=== PATIENT | female | born 1960 | race Caucasian/White ===

== ENCOUNTER 2020-05-30 10:21 | Outpatient (RCR) | payer MEDICAID, SELFPAY ==
[2020-05-30 10:22] VITALS: BP 138/68; PULSE 69
== END 2020-07-03 15:48 | disposition other institution (70) ==
LOC: HO.PT 10:21
PROVIDERS: Visit Provider Otolaryngology
DX: R42 Dizziness and giddiness (principal)
CPT/HCPCS: 97112; 97161

== ENCOUNTER 2020-12-28 15:52 | Emergency (ER) | payer MEDICAID, SELFPAY ==
--- NOTE | ~2020-12-28 | XR_ITS ---
EXAMINATION: XR CHEST CLINICAL INFORMATION: Cough COMPARISON: None TECHNIQUE: 2 views of the chest were obtained. FINDINGS: The heart and pulmonary vessels appear normal. Bibasilar scarring or atelectasis is seen. No infiltrates, effusions or suspicious lung masses are seen. XR/XR chest 2V IMPRESSION: Bibasilar atelectasis.
[2020-12-28 16:59] VITALS: BP 150/68; PULSE 98; RESP 18; TEMP 39.1; O2SAT 94; BMI 24.5
[2020-12-28] MEDS: Acetaminophen 325 MG TABLET 650 MG PO (17:08)
[2020-12-28 17:45] LABS: COVID-19 Test Negative (Negative)
[2020-12-28 19:25] VITALS: BP 117/62; PULSE 82; RESP 18; TEMP 37.4; O2SAT 95
[2020-12-28 19:33] LABS: MANUAL DIFF FLAG NO
[2020-12-28 19:34] LABS: Basophils Percent Auto 0.1 % (0-2); Eosinophils Percent Auto 0.1 % (0-4); Hematocrit 37.4 % (37-47); Hemoglobin 12.2 g/dl (12.0-16.0); Imm Gran Abs Auto 0.04 X10*3/uL (0.00-0.03); Imm Gran Pct Auto 0.4 % (0.0-0.4); Lymphocytes Absolute Auto 0.7 X10*3/uL (1.2-4.9); Lymphocytes Percent Auto 6.3 % (20-40); Mean Corpuscular HGB Conc 32.6 g/dl (31.0-35.0); Mean Corpuscular Hemoglobin 28.4 pg (27.0-33.0); Mean Platelet Volume 8.4 fL (9.4-12.3); Monocytes Absolute Auto 1.1 X10*3/uL (0.1-1.2); Monocytes Percent Auto 10.4 % (2-11); Neutrophils Absolute Auto 9.1 X10*3/uL (2.0-8.3); Neutrophils Percent Auto 82.7 % (45-73); Platelet Count 347 X10*3/uL (160-400)
[2020-12-28 20:11] LABS: Alanine Aminotransferase 21 U/L (0-31); Albumin Level 4.1 g/dL (3.5-5.0); Alkaline Phosphatase 101 U/L (39-117); Anion Gap 13 (12-20); Aspartate Amino Transferase 24 U/L (5-31); Bilirubin Total 0.6 mg/dL (0.0-1.0); Calcium 9.2 mg/dL (8.4-10.2); Carbon Dioxide 28 mmol/L (22-29); Chloride 100 mmol/L (96-108); Creatinine Clr Calc Pharmacy 63.4; Estimated Glomerular Filt Rate > 60; Glucose Random 138 mg/dL (60-115); Potassium 3.6 mmol/L (3.3-5.1); Sodium 137 mmol/L (135-145); Total Protein 6.8 g/dL (6.5-8.0)
[2020-12-28 20:18] LABS: Blood Urea Nitrogen 15 mg/dL (9-16)
--- NOTE | 2020-12-28 23:05 | ED.GENADULT ---
HPI - General Adult General Chief complaint: Fever Stated complaint: Body Pain, Dizziness Time Seen by Provider: 12/28/20 22:55 Source: patient Mode of arrival: ambulatory Limitations: no limitations History of Present Illness HPI narrative: Patient comes emergency room complaining of a red fevers, diffuse body aches, dry cough, not feeling well for 2 weeks Related Data Previous Rx's Medication Instructions Recorded acetaminophen [Tylenol] 650 mg PO Q4H PRN #14 tab 12/28/20 Allergies Allergy/AdvReac Type Severity Reaction Status Date / Time No Known Allergies Allergy Unverified 04/06/20 15:27 Review of Systems Review of Systems: Constitutional : No Weight loss, complaining of fever, chills, fatigue and generalized malaise ENT/Mouth : No Hearing loss, No Ear Pain, No Nasal Congestion, No Sinus Pain, No Hoarseness, No sore throat, No Rhinorrhea, No Swallowing Difficulty Eyes: No Eye Pain, No Swelling, No Redness, No Foreign Body, No Discharge, No Vision Changes Cardiovascular : No Chest Pain, No SOB, No Dyspnea on Exertion, No Orthopnea, No Edema, No Palpitations Respiratory : No Cough, No Sputum, No Wheezing, No Smoke Exposure, No Dyspnea Gastrointestinal : No Nausea, No Vomiting, No Diarrhea, No Constipation, No abdominal Pain, No Hematochezia, No Melena Genitourinary : no irregular bleeding, No Dysuria, No Urinary Frequency, No Hematuria, No Urinary Incontinence, No Urgency, No Flank Pain, No Urinary Flow Changes, No Hesitancy Musculoskeletal : No joint pain, No Myalgias, No Joint Swelling Skin : No Skin Lesions, No rash Neuro : No Weakness, No Numbness, No Paresthesias, No Loss of Consciousness, No Dizziness, No Headache Psych : No Anxiety/Panic, No Depression, No SI/HI/AH/VH, No Social Issues, Heme/Lymph: No Bruising, No Bleeding,No Lymphadenopathy Endocrine : No Polyuria, No Polydipsia, No Temperature Intolerance [facility] Past Medical History Medical History High cholesterol HTN (hypertension) Prediabetes Social History Social History Advance Directives: No Advance Directives Information Provided: No Patient : No Physical Exam Vital Signs: Vital Signs: Last Vital Signs Temp 99.3 F 06/10/21 19:25 Pulse 82 12/28/20 19:25 Resp 18 12/28/20 19:25 BP 117/62 12/28/20 19:25 Pulse Ox 95 12/28/20 19:25 Body Mass Index 24.5 Appearance: Alert. Oriented X3. No acute distress. Eyes: Pupils equal, round and reactive to light. ENT: Pharynx normal. Neck: Normal inspection. Neck supple. No lymph nodes noted. No crepitus CVS: Normal heart rate and rhythm. Pulses normal. Normal S1 and S2 Respiratory: No respiratory distress. Breath sounds normal. No Wheezing. No rales Abdomen: Soft and nontender. No rigidity. No distention. good BS x4 Skin: Skin warm and dry. Normal skin color. Normal skin turgor. Extremities: No lower extremity edema. No lower extremity edema. No Lacerations. No Rash Neuro: Oriented X 3. No motor deficit. No sensory deficit. Moving all extermities. No slurred speech. Course Course Course Narrative: I discussed labs with the patient. At this time, patient will get IV fluids, Toradol. Chest x-ray is within normal limits. Patient likely had having viral syndrome. At this time, patient denies dizziness. Medical Decision Making Lab Data Result diagrams: 12/28/20 19:29 12/28/20 19:29 Labs: Lab Results 12/28/20 12/28/20 12/28/20 Range/Units 17:05 19:29 19:29 WBC 11.0 H (4.8-10.8) X10*3/uL RBC 4.30 (4.20-5.50) X10*6/uL Hgb 12.2 (12.0-16.0) g/dl Hct 37.4 (37-47) % MCV 87.0 (80-98) fL MCH 28.4 (27.0-33.0) pg MCHC 32.6 (31.0-35.0) g/dl RDW 13.0 (11.0-16.0) % Plt Count 347 (160-400) X10*3/uL MPV 8.4 L (9.4-12.3) fL Immature Gran % (Auto) 0.4 (0.0-0.4) % Neut % (Auto) 82.7 H (45-73) % Lymph % (Auto) 6.3 L (20-40) % [place] % (Auto) 10.4 (2-11) % Eos % (Auto) 0.1 (0-4) % Baso % (Auto) 0.1 (0-2) % Lymph # (Auto) 0.7 L (1.2-4.9) X10*3/uL [place] # (Auto) 1.1 (0.1-1.2) X10*3/uL Eos # (Auto) 0.0 (0.0-0.4) X10*3/uL Baso # (Auto) 0.0 (0.0-0.2) X10*3/uL Abs Immat Gran (auto) 0.04 H (0.00-0.03) X10*3/uL Absolute Neuts (auto) 9.1 H (2.0-8.3) X10*3/uL Absolute Nucleated RBC 0.000 (0.0-0.012) X10*3/uL Nucleated RBC % (auto) 0.0 (0.0-0.2) /100WBC Sodium 137 (135-145) mmol/L Potassium 3.6 (3.3-5.1) mmol/L Chloride 100 (96-108) mmol/L Carbon Dioxide 28 (22-29) mmol/L Anion Gap 13 (12-20) BUN 15 (9-16) mg/dL Creatinine 0.83 (0.5-1.4) mg/dL Estim Creat Clear Calc 63.4 Estimated GFR > 60 Random Glucose 138 H (60-115) mg/dL Calcium 9.2 (8.4-10.2) mg/dL Total Bilirubin 0.6 (0.0-1.0) mg/dL AST 24 (5-31) U/L ALT 21 (0-31) U/L Alkaline Phosphatase 101 (39-117) U/L Total Protein 6.8 (6.5-8.0) g/dL Albumin 4.1 (3.5-5.0) g/dL COVID-19 (JOLENE) Negative (Negative) COVID-19 Clin Com See Note Imaging Data Chest x-ray: Radiologist's impression: FINDINGS: The heart and pulmonary vessels appear normal. Bibasilar scarring or atelectasis is seen. No infiltrates, effusions or suspicious lung masses are seen. XR/XR chest 2V IMPRESSION: Bibasilar atelectasis. Discharge Plan Discharge Clinical Impression: Viral infection Patient Disposition: Home, Self-Care Instructions: Viral Syndrome (ED) Additional Instructions: Please follow-up with your primary care physician tomorrow. If you have any worsening or new symptoms, please return to the emergency room or call 911 Prescriptions: New acetaminophen [Tylenol] 325 mg tablet 650 mg PO Q4H PRN (Reason: pain) Qty: 14 RF: 0
[2020-12-28] MEDS: 0.9 % Sodium Chloride 1,000 ML 999 ML IVCONT (23:24)
[2020-12-28] MEDS: Ketorolac Tromethamine 30 MG/ML VIAL IVPUSH (23:24)
[2020-12-28 23:51] VITALS: TEMP 36.6
== END 2020-12-29 00:26 | disposition home or self-care (01) ==
PROVIDERS: Emergency Provider Emergency Medicine; PCP Internal Medicine
DX: B34.9 Viral infection, unspecified (principal); R05 Cough; I10 Essential (primary) hypertension; Z20.822 Contact with and (suspected) exposure to COVID-19
CPT/HCPCS: 36415; 71046; 80053; 85025; 87635; 96361; 96374; 99284; J1885

== ENCOUNTER 2021-01-10 16:08 | Emergency (ER) | payer MEDICAID, SELFPAY ==
--- NOTE | ~2021-01-10 | CT_ITS ---
EXAMINATION: CT HEAD WITHOUT CONTRAST CLINICAL INFORMATION: Headache. Weakness. Amnesia. COMPARISON: None TECHNIQUE: Contiguous axial imaging was performed from the skull base to vertex without intravenous administration of contrast. Coronal and sagittal reformatted images are performed at CT scanner This CT examination was performed using dose optimization techniques as appropriate, variously including the following: *Automated exposure control *Adjustment of mA and/or kV according to patient size (this includes techniques or standardized protocols for targeted exams where dose is matched to indication/reason for exam; i.e. extremities or head) *Use of iterative reconstruction technique DLP: 557 mGy-cm FINDINGS: There is no evidence of acute intracranial hemorrhage or territorial infarction. No abnormal mass effect or midline shift is seen. Bar to white matter differentiation is well preserved. No extra-axial fluid collections are identified. There is generalized global volume loss. There is moderate prominence of the ventricles and the sulci . There are vascular calcifications of the internal carotid arteries bilaterally. The osseous structures and soft tissues are normal. The mastoid air cells and visualized portions of the paranasal sinuses are well aerated. CT/CT head/brain wo con IMPRESSION: No acute intracranial pathology.
[2021-01-10 16:43] VITALS: BP 161/73; PULSE 63; RESP 18; TEMP 36.8; O2SAT 95; BMI 25.0
[2021-01-10 17:23] LABS: Glucose Urine UA NEG (NEG); Leukocyte Esterase Urine TRACE (NEG); Nitrite Urine NEG (NEG); PH 6.5 (5.0-8.0); UACC Culture Trigger YES; Urine Blood TRACE (NEG); Urine Ketones NEG (NEG); Urine Protein NEG (NEG-TRACE)
[2021-01-10 17:25] LABS: Appearance Urine CLEAR; Color Urine YELLOW
[2021-01-10 17:34] LABS: Bacteria Urine 1+ /LPF; RBC Urine 0-2 /HPF (0); Squamous Epithelial Cell Urine TRACE /LPF; WBC Urine 0-2 /HPF (0-4)
[2021-01-10 17:35] LABS: Amorphous Sediment Urine 1+ /LPF
[2021-01-10 17:59] LABS: MANUAL DIFF FLAG NO
[2021-01-10 18:01] LABS: Basophils Percent Auto 0.2 % (0-2); Eosinophils Absolute Auto 0.1 X10*3/uL (0.0-0.4); Eosinophils Percent Auto 1.4 % (0-4); Hematocrit 38.8 % (37-47); Hemoglobin 12.7 g/dl (12.0-16.0); Imm Gran Abs Auto 0.02 X10*3/uL (0.00-0.03); Imm Gran Pct Auto 0.2 % (0.0-0.4); Lymphocytes Absolute Auto 2.2 X10*3/uL (1.2-4.9); Lymphocytes Percent Auto 26.1 % (20-40); Mean Corpuscular HGB Conc 32.7 g/dl (31.0-35.0); Mean Corpuscular Hemoglobin 28.8 pg (27.0-33.0); Mean Platelet Volume 8.4 fL (9.4-12.3); Monocytes Absolute Auto 0.6 X10*3/uL (0.1-1.2); Monocytes Percent Auto 6.8 % (2-11); Neutrophils Absolute Auto 5.5 X10*3/uL (2.0-8.3); Neutrophils Percent Auto 65.3 % (45-73); Platelet Count 489 X10*3/uL (160-400); Red Blood Count 4.41 X10*6/uL (4.20-5.50); Red Cell Distribution Width 13.2 % (11.0-16.0); White Blood Count 8.5 X10*3/uL (4.8-10.8)
[2021-01-10 18:25] LABS: Anion Gap 12 (12-20); Blood Urea Nitrogen 21 mg/dL (9-16); Calcium 9.4 mg/dL (8.4-10.2); Carbon Dioxide 27 mmol/L (22-29); Chloride 106 mmol/L (96-108); Creatinine Clr Calc Pharmacy 67.2; Estimated Glomerular Filt Rate > 60; Glucose Random 102 mg/dL (60-115); Potassium 4.1 mmol/L (3.3-5.1); Sodium 141 mmol/L (135-145)
[2021-01-10 20:24] VITALS: BP 132/56; PULSE 58; RESP 20; TEMP 36.7; O2SAT 95
--- NOTE | 2021-01-10 20:36 | PC.NURSE ---
PT PRESENTS TO ED FOR DAUGHTERS REPORT OF ACUTE CONFUSION. DAUGHTER REPORTS PT DID NOT REMEMBER IF SHE WORKED TODAY, WAS FOUND IN BED IN [facility]. 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 DAUGHTER REPORTS PT WITH A FALL APPROX 4 MONTHS AGO, POSITIVE HEAD STRIKE BUT NO IMAGING DONE OF HEAD. A&Ox3 AT THIS TIME, NEUROS INTACT. AMB WITH STEADY GAIT TO BATHROOM TO CHANGE. AWAITING PRIMARY MD ANTHONY.
--- NOTE | 2021-01-10 21:52 | ED.GENADULT ---
HPI - General Adult General Chief complaint: General Medical Stated complaint: confusion Time Seen by Provider: 01/10/21 20:30 Source: patient and family (Daughter) Mode of arrival: ambulatory Limitations: no limitations History of Present Illness HPI narrative: 60-year-old female who was brought to the emergency department by her daughter for evaluation of headache and amnesia. According to the daughter, the patient did not remember that she went to work today. The daughter saw her around 2:00 p.m. in the patient could not tell the daughter she went to work. The daughter states that she fed her mother some food and the patient's memory of the day seem to come back. The patient has been having episodes of forgetfulness over the past month which is gotten worse over the past 2 weeks. She is also having headache which she describes as a ?heaviness and air in her head ?sensation. She states that she gets these headaches in the morning and will last 4-5 hours. There located in her left side of her head and left neck. She states that the headaches can vary in intensity and can be 10/10. She states that she feels like her brain shots off during the day and she forgets things. The patient states she has taken some Tylenol with some relief of her headaches. The headaches are associated with nausea and dizziness. The patient was seen in the emergency department on 12/28/2020 for possible viral illness. Related Data Previous Rx's Medication Instructions Recorded acetaminophen [Tylenol] 650 mg PO Q4H PRN #14 tab 12/28/20 Allergies Allergy/AdvReac Type Severity Reaction Status Date / Time No Known Allergies Allergy Verified 01/10/21 16:42 Review of Systems Review of Systems: Yes all other systems are reviewed and are negative [facility] Past Medical History [facility] Narrative: Past medical history: Prediabetes, hypertension, hyperlipidemia. Past surgical history: 1 ovary was removed secondary to assist. Social history: The patient denies tobacco, alcohol and drug use. According to the patient's daughter, the patient's other daughter approximately 1 year prior at age 38, this is a sudden . Apparently the patient has been depressed secondary to this . Medical History High cholesterol HTN (hypertension) Prediabetes Social History Social History Alcohol intake: never Patient Tobacco Use Status: Never used Tobacco Use of substances other than those prescribed or required for medical reasons: No Advance Directives: No Advance Directives Information Provided: No Patient : No Physical Exam Vital Signs: Vital Signs: Last Vital Signs Temp 97.8 F 01/10/21 21:55 Pulse 74 01/10/21 21:55 Resp 16 01/10/21 21:55 BP 113/74 01/10/21 21:55 Pulse Ox 99 01/10/21 21:55 Body Mass Index 25.0 Const: General: cooperative and healthy appearing Orientation/consciousness: oriented to person and oriented to place Limitations: no limitations HENMT: Head: Yes normal to inspection, Yes normocephalic and Yes atraumatic Ears: external ears normal General nose exam: Normal external nose present Face and sinus: Yes normal facial exam Mouth: Normal oral and palatal mucosa present Throat: Yes posterior oropharynx normal Eyes: Periorbital: periorbital findings normal Eyelids: Yes eyelids normal Conjunctivae: conjunctivae normal Sclerae: sclerae normal Corneas: corneas normal Pupils: Equal, round and reactive pupils present Direct Ophthalmoscopy: normal light reflex Neck: Neck: Yes full ROM, Yes no lymphadenopathy, Yes no meningeal signs, Yes trachea midline and Yes supple Chest: Chest palpation & inspection: normal inspection of the chest and normal palpation of entire chest wall Resp: Effort & Inspection: normal respiratory effort and able to speak in complete sentences Auscultation: clear to auscultation bilaterally Cardio: Rate: regular rate Rhythm: regular rhythm Heart sounds: S1 normal heart sound present, S2 normal heart sound present and no murmurs GI: Inspection: Yes normal to inspection Palpation (GI): Soft to palpation, nontender, no guarding, not rigid and No hepatosplenomegaly present : General: Yes no CVA tenderness Back/Spine/Pelvis: Back: no CVA tenderness Cervical Spine: normal cervical lordosis Thoracic/Lumbar Spine: thoracic and lumbar spine normal to inspection Skin: Lesions: no lesions Rashes: no rashes Wounds: no wounds Neuro: General: oriented to person, oriented to place and no meningeal signs Cranial nerves: Yes CN's II-XII intact bilaterally and Yes Equal, round and reactive pupils present Cognition (Neuro): normal cognition Motor exam (neuro): 5/5 motor strength present throughout Coordination: [id number] test normal, [id number] test normal and tandem gait normal Extrem: General: Yes normal to inspection and Yes full ROM Psych: Appearance: well kempt Mental Status: mental status grossly normal Speech and movement: Normal speech and movement present Affect: normal affect Attitude: cooperative Thought process: Normal thought process present Thought content: Normal thought content present Course Course Course Narrative: 60-year-old female who presents emergency department for evaluation of headaches times 2 weeks, amnesia with for got fullness x1 month. The patient's physical examination was unremarkable with a normal neurologic exam. Laboratory evaluation was ordered. CT scan of the brain was also ordered. 2317: Patient's laboratory evaluation was unremarkable. CT scan of the brain did not reveal any clear etiology for the patient's headache or amnesia symptoms. The patient will need to be referred to a neurologist for evaluation of possible seizure is the cause of her symptoms. She was advised to take Tylenol ibuprofen for pain. The patient was given verbal and printed instructions prior to discharge. The patient was advised to follow-up with their PCP in 2 days and to return to the emergency department if their symptoms get worse or if they develop any new symptoms that are concerning to them Medical Decision Making Lab Data Result diagrams: 01/10/21 17:55 01/10/21 17:55 Labs: Lab Results 01/10/21 01/10/21 01/10/21 Range/Units 17:04 17:55 17:55 WBC 8.5 (4.8-10.8) X10*3/uL RBC 4.41 (4.20-5.50) X10*6/uL Hgb 12.7 (12.0-16.0) g/dl Hct 38.8 (37-47) % MCV 88.0 (80-98) fL MCH 28.8 (27.0-33.0) pg MCHC 32.7 (31.0-35.0) g/dl RDW 13.2 (11.0-16.0) % Plt Count 489 H D (160-400) X10*3/uL MPV 8.4 L (9.4-12.3) fL Immature Gran % (Auto) 0.2 (0.0-0.4) % Neut % (Auto) 65.3 (45-73) % Lymph % (Auto) 26.1 (20-40) % [place] % (Auto) 6.8 (2-11) % Eos % (Auto) 1.4 (0-4) % Baso % (Auto) 0.2 (0-2) % Lymph # (Auto) 2.2 (1.2-4.9) X10*3/uL [place] # (Auto) 0.6 (0.1-1.2) X10*3/uL Eos # (Auto) 0.1 (0.0-0.4) X10*3/uL Baso # (Auto) 0.0 (0.0-0.2) X10*3/uL Abs Immat Gran (auto) 0.02 (0.00-0.03) X10*3/uL Absolute Neuts (auto) 5.5 (2.0-8.3) X10*3/uL Absolute Nucleated RBC 0.000 (0.0-0.012) X10*3/uL Nucleated RBC % (auto) 0.0 (0.0-0.2) /100WBC Sodium 141 (135-145) mmol/L Potassium 4.1 (3.3-5.1) mmol/L Chloride 106 (96-108) mmol/L Carbon Dioxide 27 (22-29) mmol/L Anion Gap 12 (12-20) BUN 21 H (9-16) mg/dL Creatinine 0.79 (0.5-1.4) mg/dL Estim Creat Clear Calc 67.2 Estimated GFR > 60 Random Glucose 102 (60-115) mg/dL Calcium 9.4 (8.4-10.2) mg/dL Urine Color YELLOW Urine Appearance CLEAR Urine pH 6.5 (5.0-8.0) Ur Specific [place] 1.010 (1.005-1.025) Urine Protein NEG (NEG-TRACE) MG/DL Urine Glucose (UA) NEG (NEG) MG/DL Urine Ketones NEG (NEG) MG/DL Urine Blood TRACE (NEG) Urine Nitrite NEG (NEG) Ur Leukocyte Esterase TRACE H (NEG) Urine RBC 0-2 (0) /HPF Urine WBC 0-2 (0-4) /HPF Ur Squamous Epith Cells TRACE /LPF Amorphous Sediment 1+ /LPF Urine Bacteria 1+ /LPF Discharge Plan Discharge Clinical Impression: Amnesia Headache Qualifiers: Headache type: unspecified Headache chronicity pattern: acute headache Intractability: not intractable Qualified Code(s): R51.9 - Headache, unspecified Patient Disposition: Home, Self-Care Additional Instructions: Your laboratory evaluation was unremarkable. The CT scan of your brain was normal which is reassuring. At this time, I do not have a clear cause for your forgetfulness and amnesia. It is possible that he may be having seizures. You will need to follow-up with a neurologist to further evaluate your symptoms. It is also possible your symptoms may be caused by stress and anxiety and you should discuss this with your doctors. Take ibuprofen 200 mg pills, 3 pills every 6 hours as needed for pain. Take Tylenol (acetaminophen) 500 mg pills, 2 pills every 4 to 6 hours as needed for pain. Follow-up with your doctor in 2 days. Also call our neurologist to see if you can schedule appointment to be evaluated for causes of your amnesia and forgetfulness such as seizures. Please return to the emergency department if your symptoms get worse or if you develop any symptoms that are concerning to you. Prescriptions: No Action acetaminophen [Tylenol] 325 mg tablet 650 mg PO Q4H PRN (Reason: pain) Qty: 14 RF: 0 Referrals: Martell Jaime MD [Physician] - 1 week (Amnesia, forgetfulness, headaches, needs evaluation for possible partial seizures) Stand Alone Forms: Work/School Release
[2021-01-10 21:55] VITALS: BP 113/74; PULSE 74; RESP 16; TEMP 36.6; O2SAT 99
--- NOTE | 2021-01-10 22:38 | PC.NURSE ---
PT AWAITING CT SCAN, AWARE OF PLAN OF CARE. NO COMPLAINTS AT THIS TIME.
== END 2021-01-10 23:58 | disposition home or self-care (01) ==
PROVIDERS: Emergency Provider Emergency Medicine Emergency Medical Services; PCP Internal Medicine
DX: R41.3 Other amnesia (principal); R51.9 Headache, unspecified; I10 Essential (primary) hypertension
CPT/HCPCS: 36415; 70450; 80048; 81001; 81003; 85025; 87086; 87088; 87147; 87186; 99284

== ENCOUNTER 2021-01-19 14:22 | Outpatient (REF) | payer MEDICAID, SELFPAY ==
--- NOTE | ~2021-01-19 | MR_ITS ---
EXAMINATION: MR BRAIN WITHOUT CONTRAST CLINICAL INFORMATION: Dizziness, giddiness, headache, fatigue. Abnormal weight loss. COMPARISON: CT head 01/10/2021 TECHNIQUE: Routine unenhanced MRI of the brain. FINDINGS: No intracranial hemorrhage, tumors or acute infarcts are noted. A small number of scattered supratentorial periventricular and subcortical white matter punctate T2 hyperintensities are identified. Mild diffuse commensurate prominence of the ventricles and sulci is noted. Susceptibility-weighted images reveal no evidence of acute or chronic hemorrhage within the brain parenchyma. The craniocervical junction and cerebellar tonsils are normal in appearance. No suspicious marrow abnormalities are visualized. The orbits and globes are normal in appearance. No significant mucosal thickening or retained secretions are noted within the paranasal sinuses, mastoid air cells and middle ear cavities. Normal flow-related signal intensity is identified in the major intracranial vessels and dural sinuses. MR/MR head/brain wo con IMPRESSION: Small number of scattered punctate (less than 3 mm) white matter foci of altered signal intensity (supratentorial subcortical and periventricular white matter punctate T2 hyperintensities). These findings are of uncertain clinical significance, and similar findings are a frequently encountered asymptomatic finding. These findings could also represent mild white matter chronic small vessel ischemic changes.
== END 2021-01-19 14:23 | disposition home or self-care (01) ==
LOC: HO.MRI 14:22
PROVIDERS: PCP Internal Medicine; Visit Provider Internal Medicine Geriatric Medicine
DX: R42 Dizziness and giddiness (principal); R51.9 Headache, unspecified; R53.83 Other fatigue; R63.4 Abnormal weight loss
CPT/HCPCS: 70551

== ENCOUNTER 2022-01-02 11:36 | Emergency (ER) | payer MEDICAID, SELFPAY ==
--- NOTE | ~2022-01-02 | XR_ITS ---
EXAMINATION: XR CHEST CLINICAL INFORMATION: Chest pain COMPARISON: Previous chest x-ray December 2020 TECHNIQUE: 2 views of the chest were obtained. FINDINGS: The cardiac and mediastinal contours are normal. The lungs are clear. There is no pleural effusion or pneumothorax. There are degenerative changes of the spine. XR/XR chest 2V IMPRESSION: No evidence for acute disease in the chest.
[2022-01-02 11:43] VITALS: BP 164/80; PULSE 80; O2SAT 96
[2022-01-02 12:08] VITALS: BP 155/66; PULSE 73; RESP 18; TEMP 36.6; O2SAT 98; BMI 27.4
--- NOTE | 2022-01-02 12:13 | ECG_ITS ---
Test Reason : chest pain right side Blood Pressure : / mmHG Vent. Rate : 062 BPM Atrial Rate : 062 BPM P-R Int : 176 ms QRS Dur : 116 ms QT Int : 440 ms P-R-T Axes : 047 -18 047 degrees QTc Int : 446 ms Normal sinus rhythm Possible Left atrial enlargement Left ventricular hypertrophy with QRS widening ( Anshu product ) Abnormal ECG When compared to the previous EKG of No significant changes seen Referred By: Generic ED Physician Electronically Signed By:Jose Juan Almanzar
[2022-01-02 12:30] LABS: MANUAL DIFF FLAG NO
[2022-01-02 12:37] LABS: Basophils Percent Auto 0.3 % (0-2); Eosinophils Absolute Auto 0.1 X10*3/uL (0.0-0.4); Eosinophils Percent Auto 1.5 % (0-4); Hematocrit 41.5 % (37.0-47.0); Hemoglobin 13.8 g/dl (12.0-16.0); Imm Gran Abs Auto 0.01 X10*3/uL (0.00-0.03); Imm Gran Pct Auto 0.1 % (0.0-0.4); Lymphocytes Absolute Auto 2.1 X10*3/uL (1.2-4.9); Lymphocytes Percent Auto 28.8 % (20-40); Mean Corpuscular HGB Conc 33.3 g/dl (31.0-35.0); Mean Corpuscular Hemoglobin 29.4 pg (27.0-33.0); Mean Corpuscular Volume 88.3 fL (80.0-98.0); Monocytes Absolute Auto 0.6 X10*3/uL (0.1-1.2); Monocytes Percent Auto 8.7 % (2-11); Neutrophils Absolute Auto 4.3 x10*3/uL (2.0-8.3); Neutrophils Percent Auto 60.6 % (45-73); Platelet Count 343 X10*3/uL (160-400); White Blood Count 7.1 X10*3/uL (4.8-10.8)
[2022-01-02 12:54] LABS: Anion Gap 13 (12-20); Blood Urea Nitrogen 15 mg/dL (9-16); Carbon Dioxide 27 mmol/L (22-29); Chloride 103 mmol/L (96-108); Creatinine Clr Calc Pharmacy 69.3; Estimated Glomerular Filt Rate > 60; Glucose Random 107 mg/dL (60-115); Sodium 139 mmol/L (135-145)
[2022-01-02 12:56] LABS: COVID-19 Test Negative (Negative); IDNOW Serial# 9DB6401D; Influenza A Negative (Negative); Influenza B2 Negative (Negative)
[2022-01-02 13:00] LABS: B Type Natriuretic Peptide 23 pg/mL (<100); Troponin-I High Sensitivity < 3.5 ng/L (<3.5-17.0)
[2022-01-02 13:06] VITALS: BP 159/73; PULSE 65; RESP 16; TEMP 37.1; O2SAT 94; O2SAT 95
--- NOTE | 2022-01-02 13:22 | ED_ITS ---
HPI - Chest Pain General Chief Complaint: Upper Respiratory Symptoms Stated Complaint: R SIDED CP SINCE SHE WOKE UP Time Seen by Provider: 01/02/22 12:38 Source: patient Mode of arrival: ambulatory Limitations: language barrier ([place] speaking only, student success counselor used) History of Present Illness HPI narrative: 61-year-old female who presents emergency department for evaluation of right- sided chest pain. She states that she woke up this morning and had pain in the right side of her chest. She states the pain radiated to her right shoulder and down her right arm. She states the pain was very mild 2/10. She states the pain was a burning like sensation and was intermittent with last minutes. 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 She states the pain was 2/10. She denied lightheadedness, dizziness, neck or jaw pain. The pain did not radiate to her back. Patient states this morning her blood pressure was elevated she did take her hydrochlorothiazide. She states that she felt like her blood pressure was high at the school and she took another hydrochlorothiazide. She was then transported to the hospital by ambulance. At the time my evaluation, she stated that her chest pain was completely resolved. She does exercise and lift weights without any difficulty. She this she has done this over the last several days. She does not recall any injury to her chest pain She denied fever, chills, rhinorrhea, sore throat, shortness of breath, dyspnea on exertion, nausea, vomiting, diarrhea, pain or swelling in her legs. She has not had any recent surgeries and is not gone on any long trips. MD complaint: chest pain Onset (ago): hour(s) (4) Timing of current episode: episodic Prior episodes: No Onset: during exertion (While serving lunch is at the school cafeteria) Pain location: right chest Pain radiation: right arm Severity: mild Pain scale (0-10): 2 Quality: burning Relieving factors: nothing Exacerbating factors: nothing Treatment prior to arrival: other (Patient took her antihypertensive medication, hydrochlorothiazide.) Risk Factors Coronary artery disease risk factors: hyperlipidemia and hypertension Thoracic aortic dissection risk factors: none Related Data Previous Rx's Medication Instructions Recorded acetaminophen 325 mg tablet 650 mg PO Q4H PRN pain #14 tabs 12/28/20 (Tylenol) Allergies Allergy/AdvReac Type Severity Reaction Status Date / Time No Known Allergies Allergy Verified 01/10/21 16:42 Review of Systems Review of Systems: Yes all other systems are reviewed and are negative COUNTS INCLUDE 234 BEDS AT THE [facility] Past Medical History COUNTS INCLUDE 234 BEDS AT THE [facility] Narrative: Social history: She denies tobacco use. She occasionally drinks alcohol. She denies drug use. Medical History High cholesterol HTN (hypertension) Prediabetes Social History Social History Alcohol intake: never Patient Tobacco Use Status: Never used Tobacco Use of substances other than those prescribed or required for medical reasons: No Advance Directives: No Advance Directives Information Provided: No Physical Exam Vital Signs: Vital Signs: Last Vital Signs Temp 98.7 F 01/02/22 13:06 Pulse 65 01/02/22 13:06 Resp 16 01/02/22 13:06 BP 159/73 H 01/02/22 13:06 Pulse Ox 94 01/02/22 13:06 O2 Del Method 01/02/22 13:06 BMI result Body Mass Index 27.4 Const: General: cooperative and no acute distress Orientation/consciousness : oriented to person and oriented to place Limitations: no limitations HEENT: Head: Yes normal to inspection, Yes normocephalic and Yes atraumatic Ears: external ears normal General nose exam: Normal external nose present Face and sinus: Yes normal facial exam Mouth: Normal oral and palatal mucosa present Throat: Yes posterior oropharynx normal Eyes: General: appearance normal, both eyes and all related structures Pupils: Equal, round and reactive pupils present Neck: Neck: Yes normal visual inspection, Yes no lymphadenopathy, Yes trachea midline and Yes supple Chest: Chest palpation & inspection: normal inspection of the chest and tenderness costochondral junction (Right-sided) Resp: Effort & Inspection: normal respiratory effort and able to speak in complete sentences Auscultation: clear to auscultation bilaterally Cardio: Rate: regular rate Rhythm: regular rhythm Heart sounds: S1 normal heart sound present, S2 normal heart sound present and no murmurs GI: Inspection: Yes normal to inspection Palpation (GI): Soft to palpation, nontender and no guarding Auscultation: normal bowel sounds : General: Yes no CVA tenderness Back/Spine/Pelvis: Back: no CVA tenderness Skin: General skin exam: no rashes or lesions noted Neuro: General: oriented to person and oriented to place Cranial nerves: Yes CN's II-XII intact bilaterally and Yes Equal, round and reactive pupils present Cognition (Neuro): normal cognition Motor exam (neuro): 5/5 motor strength present throughout Extrem: General: Yes normal to inspection Psych: Appearance: grossly normal Speech and movement: Normal speech and movement present Affect: normal affect Attitude: cooperative Thought process: Normal thought process present Thought content: Normal thought cont ent present Course Course Course Narrative: 61-year-old female who presents emergency department for evaluation of right- sided chest pain which radiated to her right arm, she states that the pain started this morning when she woke up. This was at least 4 hours prior to evaluation. The pain was an intermittent burning sensation which was 2/10 at its worst. The pain got worse while she was serving food at the school cafeteria. She does have a history of hypertension and was noted to have an elevated blood pressure by the school nurse and the patient did take a 2nd dose of her hydrochlorothiazide. At the time my evaluation she was pain-free. Patient's vital signs were normal. Physical examination did reveal right-sided anterior chest wall tenderness over the costochondral joints. Exam was othe rwise unremarkable. Laboratory evaluation included a CBC, CMP, BNP and these tests were unremarkable. The patient's high sensitivity troponin I was below detectable limits which was reassuring. Twelve EKG did reveal inverted T-wave in V1 with ST segment elevation and ST segment depression V5 and V6 but I think that this is secondary to LVH and not an acute RI. chest x-ray, COVID-19 and influenza tests were negative. The patient's presentation is most consistent with costochondritis I did discuss this with her. Patient was given printed and verbal instructions and discharged home. MDM - Chest Pain Lab Data Result diagrams: 01/02/22 12:22 01/02/22 12:22 Labs: Lab Results 01/02/22 01/02/22 01/02/22 Range/Units 12:19 12:19 12:22 WBC 7.1 (4.8-10.8) X10*3/uL RBC 4.70 (4.20-5.50) X10*6/uL Hgb 13.8 (12.0-16.0) g/dl Hct 41.5 (37.0-47.0) % MCV 88.3 (80.0-98.0) fL MCH 29.4 (27.0-33.0) pg MCHC 33.3 (31.0-35.0) g/dl RDW 13.0 (11.0-16.0) % Plt Count 343 (160-400) X10*3/uL MPV 9.0 L (9.4-12.3) fL Immature Gran % (Auto) 0.1 (0.0-0.4) % Neut % (Auto) 60.6 (45-73) % Lymph % (Auto) 28.8 (20-40) % [place] % (Auto) 8.7 (2-11) % Eos % (Auto) 1.5 (0-4) % Baso % (Auto) 0.3 (0-2) % Lymph # (Auto) 2.1 (1.2-4.9) X10*3/uL [place] # (Auto) 0.6 (0.1-1.2) X10*3/uL Eos # (Auto) 0.1 (0.0-0.4) X10*3/uL Baso # (Auto) 0.0 (0.0-0.2) X10*3/uL Abs Immat Gran (auto) 0.01 (0.00-0.03) X10*3/uL Absolute Neuts (auto) 4.3 (2.0-8.3) x10*3/uL Absolute Nucleated RBC 0.000 (0.0-0.012) X10*3/uL Nucleated RBC % (auto) 0.0 (0.0-0.2) /100WBC Sodium (135-145) mmol/L Potassium (3.3-5.1) mmol/L Chloride (96-108) mmol/L Carbon Dioxide (22-29) mmol/L Anion Gap (12-20) BUN (9-16) mg/dL Creatinine (0.5-1.4) mg/dL Estim Creat Clear Calc Estimated GFR Random Glucose (60-115) mg/dL Calcium (8.4-10.2) mg/dL Troponin I High Sens (<3.5-17.0) ng/L B-Natriuretic Peptide (<100) pg/mL COVID-19 (JOLENE) Negative (Negative) COVID-19 Clin Com See Note Influenza Type A (YESSY) Negative (Negative) Influenza Type B (YESSY) Negative (Negative) Influenza A & B Note See Note 01/02/22 01/02/22 Range/Units 12:22 12:22 WBC (4.8-10.8) X10*3/uL RBC (4.20-5.50) X10*6/uL Hgb (12.0-16.0) g/dl Hct (37.0-47.0) % MCV (80.0-98.0) fL MCH (27.0-33.0) pg MCHC (31.0-35.0) g/dl RDW (11.0-16.0) % Plt Count (160-400) X10*3/uL MPV (9.4-12.3) fL Immature Gran % (Auto) (0.0-0.4) % Neut % (Auto) (45-73) % Lymph % (Auto) (20-40) % [place] % (Auto) (2-11) % Eos % (Auto) (0-4) % Baso % (Auto) (0-2) % Lymph # (Auto) (1.2-4.9) X10*3/uL [place] # (Auto) (0.1-1.2) X10*3/uL Eos # (Auto) (0.0-0.4) X10*3/uL Baso # (Auto) (0.0-0.2) X10*3/uL Abs Immat Gran (auto) (0.00-0.03) X10*3/uL Absolute Neuts (auto) (2.0-8.3) x10*3/uL Absolute Nucleated RBC (0.0-0.012) X10*3/uL Nucleated RBC % (auto) (0.0-0.2) /100WBC Sodium 139 (135-145) mmol/L Potassium 4.0 (3.3-5.1) mmol/L Chloride 103 (96-108) mmol/L Carbon Dioxide 27 (22-29) mmol/L Anion Gap 13 (12-20) BUN 15 (9-16) mg/dL Creatinine 0.79 (0.5-1.4) mg/dL Estim Creat Clear Calc 69.3 Estimated GFR > 60 Random Glucose 107 (60-115) mg/dL Calcium 10.0 D (8.4-10.2) mg/dL Troponin I High Sens < 3.5 (<3.5-17.0) ng/L B-Natriuretic Peptide 23 (<100) pg/mL COVID-19 (JOLENE) (Negative) COVID-19 Clin Com Influenza Type A (YESSY) (Negative) Influenza Type B (YESSY) (Negative) Influenza A & B Note ECG Data ECG #1: Attestation: I personally reviewed and interpreted this ECG as follows: Interpretation: 1219: Normal sinus rhythm with a rate of 62, normal [place] interval, prolonged QRS of 116 milliseconds, inverted T-wave in V1, ST segment elevation in V2 with ST segment depression V5 and V6 consistent with left ventricular hypertrophy with QRS widening, no old EKG for comparison. Discharge Plan Discharge Clinical Impression: Costochondral chest pain Patient Disposition: Home, Self-Care Instructions: Costochondritis (ED) Additional Instructions: Your blood work was normal. Your chest x-ray was normal. Your COVID-19 and influenza tests were negative. Your symptoms are consistent with inflammation of the joints and muscles of your chest (costochondritis). Take ibuprofen 200 mg pills, 3 pills every 6 hours as needed for pain. Take Tylenol (acetaminophen) 500 mg pills, 2 pills every 4 to 6 hours as needed for pain. Continue taking your medications including your hydrochlorothiazide as prescribed by your provider. Follow-up with your doctor in 2 days. Please return to the emergency department if your symptoms get worse or if you develop any symptoms that are concerning to you. Please see the work note. Prescriptions: No Action acetaminophen [Tylenol] 325 mg tablet 650 mg PO Q4H PRN (Reason: pain) Qty: 14 0RF Stand Alone Forms: Work/School Release
== END 2022-01-02 13:59 | disposition home or self-care (01) ==
PROVIDERS: Emergency Provider Emergency Medicine Emergency Medical Services; PCP Internal Medicine
DX: M94.0 Chondrocostal junction syndrome [Tietze] (principal); I10 Essential (primary) hypertension; Z79.899 Other long term (current) drug therapy; Z20.822 Contact with and (suspected) exposure to COVID-19
CPT/HCPCS: 71046; 80048; 83880; 84484; 85025; 87502; 87635; 93005; 99283; 99284

== ENCOUNTER 2022-07-24 15:46 | Emergency (ER) | payer MEDICAID, SELFPAY ==
--- NOTE | ~2022-07-24 | XR_ITS ---
EXAMINATION: XR CHEST CLINICAL INFORMATION: Chest wall pain. COMPARISON: Chest radiograph 01/02/2022. TECHNIQUE: Frontal view of the chest was obtained. FINDINGS: Normal appearance of the cardiomediastinal silhouette. Mild interstitial prominence, subjectively increased compared to December 2021. No focal airspace opacities. No pleural effusion or pneumothorax. No evidence of displaced rib fractures. XR/XR chest 1V IMPRESSION: 1. Mild interstitial prominence is nonspecific and could be associated with asthma, bronchitis, reactive airways disease or atypical infections. 2. No focal airspace opacities. 3. No pleural effusion or pneumothorax. 4. No evidence of displaced rib fractures. However, if a rib fracture is highly clinically suspected, recommend correlation with dedicated radiographic images of the rib cage which include oblique views.
--- NOTE | 2022-07-24 16:34 | ECG_ITS ---
Test Reason : LEFT SIDE PAIN Blood Pressure : / mmHG Vent. Rate : 066 BPM Atrial Rate : 066 BPM P-R Int : 194 ms QRS Dur : 116 ms QT Int : 420 ms P-R-T Axes : 068 -12 057 degrees QTc Int : 440 ms Normal sinus rhythm Incomplete right bundle branch block Minimal voltage criteria for LVH, may be normal variant ( Anshu product ) Borderline ECG When compared with ECG of 02-JAN-2022 12:19, No significant change was found Referred By: Sharri Rodríguez Electronically Signed By:PAULA NESS
--- NOTE | 2022-07-24 16:34 | ED.CHESTPAIN ---
HPI - Chest Pain General Chief Complaint: General Medical <RONY Pretty - Last Filed: 07/24/22 16:38> Stated Complaint: Chest Pain, L sided body aches <RONY Pretty - Last Filed: 07/24/22 16:38> Time Seen by Provider: 07/24/22 17:31 <RONY Pretty - Last Filed: 07/24/22 16:38> Source: patient <Dhruv Douglas MD - Last Filed: 07/25/22 11:04> Mode of arrival: ambulatory <Dhruv Douglas MD - Last Filed: 07/25/22 11:04> Limitations: language barrier (Barbadian speaking only, zipper repairer used) <Dhruv Douglas MD - Last Filed: 07/25/22 11:04> History of Present Illness HPI narrative: This patient has been in the emergency department for approximately 18 hours. The patient was listed as being seen by provider however the patient never actually saw provider until I was made aware the patient has been in the emergency department for 18 hours and was requesting 2 leave. 62-year-old female who presents emergency department for evaluation of right arm pain times 2 months. The patient told me that her right arm feels heavy and she has difficulty lifting it above her shoulder. She states that she has to use her right arm in order to lift her left arm up above her head in order to fix her hair. She states she gets occasional numbness in the left arm. She states that she has pain in the left neck as well. She denies any injury. She states she occasionally gets some left-sided chest pain. She has been taking ibuprofen and Tylenol with no relief of her pain. She denied fever, chills, rhinorrhea, sore throat, cough, chest pain, shortness of breath, dyspnea on exertion. <Dhruv Douglas MD - Last Filed: 07/25/22 11:04> Related Data Home Medications: Previous Rx's Medication Instructions Recorded acetaminophen 325 mg tablet 650 mg PO Q4H PRN pain #14 tabs 12/28/20 (Tylenol) prednisone 20 mg tablet 20 mg PO DAILY 7 days #7 tabs 07/25/22 <RONY Pretty - Last Filed: 07/24/22 16:38> Allergies/Adverse Reactions: Allergies Allergy/AdvReac Type Severity Reaction Status Date / Time No Known Allergies Allergy Verified 01/10/21 16:42 <RONY Pretty - Last Filed: 07/24/22 16:38> Review of Systems Review of Systems: Yes all other systems are reviewed and are negative <Dhruv Douglas MD - Last Filed: 07/25/22 11:04> [facility] Past Medical History [facility] Narrative: Social history: She denies tobacco, and drug use. She states she occasionally drinks alcohol. <Dhruv Douglas MD - Last Filed: 07/25/22 11:04> Medical History: Medical History High cholesterol HTN (hypertension) Prediabetes <RONY Pretty - Last Filed: 07/24/22 16:38> Social History Social History: Social History Alcohol intake: never Patient Tobacco Use Status: Never used Tobacco Smoked in Last 30 Days: No Use of substances other than those prescribed or required for medical reasons: No Advance Directives: No Advance Directives Information Provided: Yes <RONY Pretty - Last Filed: 07/24/22 16:38> Physical Exam Vital Signs: Vital Signs: Last Vital Signs Temp 97.8 F 07/25/22 10:23 Pulse 67 07/25/22 10:23 Resp 11 L 07/25/22 10:23 BP 123/61 07/25/22 10:23 Pulse Ox 95 07/25/22 10:23 O2 Del Method 07/25/22 10:23 O2 Flow Rate 94 07/25/22 03:22 BMI result Body Mass Index 25.0 <RONY Pretty - Last Filed: 07/24/22 16:38> Vital Signs: Last Vital Signs Temp 97.8 F 07/25/22 10:23 Pulse 67 07/25/22 10:23 Resp 11 L 07/25/22 10:23 BP 123/61 07/25/22 10:23 Pulse Ox 95 07/25/22 10:23 O2 Del Method 07/25/22 10:23 O2 Flow Rate 94 07/25/22 03:22 BMI result Body Mass Index 25.0 <Nafisa Candelaria MD - Last Filed: 07/24/22 18:48> Vital Signs: Last Vital Signs Temp 97.8 F 07/25/22 10:23 Pulse 67 07/25/22 10:23 Resp 11 L 07/25/22 10:23 BP 123/61 07/25/22 10:23 Pulse Ox 95 07/25/22 10:23 O2 Del Method 07/25/22 10:23 O2 Flow Rate 94 07/25/22 03:22 BMI result Body Mass Index 25.0 Vital signs were normal. <Dhruv Douglas MD - Last Filed: 07/25/22 11:04> General: Awake, alert, patient, very pleasant cooperative, no distress. HEENT exam: Head is normal cephalic atraumatic, pupils were equal round reactive light, sclera contact however normal Neck: Supple, no cervical spine tenderness, no tenderness palpation of the trapezius muscles or sternocleidomastoid muscles. Extremities: The patient does have tenderness palpation over her proximal shoulder muscles, she has full range of motion passively of her shoulder with some pain we internal rotation. The patient has significant pain with active rotation against resistance with internal and external rotation of her left shoulder. Her left shoulder is neurovascularly intact. Lungs: Clear to auscultation Heart: Regular rate rhythm Abdomen: Soft nontender normoactive bowel sounds Neurologic exam: nonfocal except for limited range motion of the left shoulder secondary to pain <Dhruv Douglas MD - Last Filed: 07/25/22 11:04> Course Course Course Narrative: RME--62-year-old female with a past medical history of HLD, HTN, prediabetic, presenting to the ED complaining of left-sided body pain x2 months. Reports greatest in left breast radiating down left upper extremity, now rating down left lower extremity. No focal neuro deficits on exam, ambulating with steady gait, no appreciable weakness EKG, labs, CXR, COVID/flu/RSV testing ordered <RONY Pretty - Last Filed: 07/24/22 16:38> Medical Decision Making Medical Decision Making MDM Narrative: 62-year-old female who presents emergency department for evaluation of left shoulder pain and left arm heaviness x2 months, pain is worse with movement. On physical examination the patient has good passive range of motion of her left shoulder but has significant discomfort with active range of motion. My interpretation of laboratory/EKG/radiology studies: CBC was normal, CMP revealed an elevated glucose of 283, the patient is prediabetic. Troponin was below detectable limits. RSV, influenza and COVID-19 were negative. Chest x-ray: My interpretation is no acute disease. Twelve EKG revealed no acute abnormalities. <Dhruv Douglas MD - Last Filed: 07/25/22 11:04> Differential Diagnosis Differential diagnosis includes but is not limited to rotator cuff injury, tendinitis of rotator cuff muscles, myocardial infarction, stroke <Dhruv Douglas MD - Last Filed: 07/25/22 11:04> Lab Data [facility] Lab Attestation statement: I reviewed the patient's lab results. <Dhruv Douglas MD - Last Filed: 07/25/22 11:04> See my interpretation in [facility] <Dhruv Douglas MD - Last Filed: 07/25/22 11:04> Result Diagrams: : 07/24/22 18:37 07/24/22 18:37 <RONY Pretty - Last Filed: 07/24/22 16:38> Labs: Lab Results 07/24/22 07/24/22 07/24/22 Range/Units 18:37 18:37 18:38 WBC 6.4 (4.8-10.8) X10*3/uL RBC 4.53 (4.20-5.50) X10*6/uL Hgb 13.3 (12.0-16.0) g/dl Hct 40.0 (37.0-47.0) % MCV 88.3 (80.0-98.0) fL MCH 29.4 (27.0-33.0) pg MCHC 33.3 (31.0-35.0) g/dl RDW 12.8 (11.0-16.0) % Plt Count 321 (160-400) X10*3/uL MPV 8.9 L (9.4-12.3) fL Immature Gran % (Auto) 0.3 (0.0-0.4) % Neut % (Auto) 65.0 (45-73) % Lymph % (Auto) 23.1 (20-40) % [place] % (Auto) 8.3 (2-11) % Eos % (Auto) 3.0 (0-4) % Baso % (Auto) 0.3 (0-2) % Lymph # (Auto) 1.5 (1.2-4.9) X10*3/uL [place] # (Auto) 0.5 (0.1-1.2) X10*3/uL Eos # (Auto) 0.2 (0.0-0.4) X10*3/uL Baso # (Auto) 0.0 (0.0-0.2) X10*3/uL Abs Immat Gran (auto) 0.02 (0.00-0.03) X10*3/uL Absolute Neuts (auto) 4.2 (2.0-8.3) x10*3/uL Absolute Nucleated RBC 0.000 (0.0-0.012) X10*3/uL Nucleated RBC % (auto) 0.0 (0.0-0.2) /100WBC Sodium 139 (135-145) mmol/L Potassium 3.5 (3.3-5.1) mmol/L Chloride 103 (96-108) mmol/L Carbon Dioxide 25 (22-29) mmol/L Anion Gap 15 (12-20) BUN 16 (9-16) mg/dL Creatinine 0.81 (0.5-1.4) mg/dL Estim Creat Clear Calc 74.5 Estimated GFR > 60 Random Glucose 283 H (60-115) mg/dL Calcium 9.4 (8.4-10.2) mg/dL Magnesium 2.1 (1.6-2.6) mg/dL Total Bilirubin 0.5 (0.0-1.0) mg/dL Direct Bilirubin 0.2 (0.0-0.5) mg/dL AST 18 (5-31) U/L ALT 19 (0-31) U/L Alkaline Phosphatase 93 (39-117) U/L Troponin I High Sens < 3.5 (<3.5-17.0) ng/L Total Protein 6.8 (6.5-8.0) g/dL Albumin 4.3 (3.5-5.0) g/dL Influenza Type A (PCR) (Negative) Influenza Type B (PCR) (Negative) RSV RNA Qual (PCR) (Negative) SARS-CoV-2 RNA (RT-PCR) (Negative) 07/24/22 Range/Units 18:38 WBC (4.8-10.8) X10*3/uL RBC (4.20-5.50) X10*6/uL Hgb (12.0-16.0) g/dl Hct (37.0-47.0) % MCV (80.0-98.0) fL MCH (27.0-33.0) pg MCHC (31.0-35.0) g/dl RDW (11.0-16.0) % Plt Count (160-400) X10*3/uL MPV (9.4-12.3) fL Immature Gran % (Auto) (0.0-0.4) % Neut % (Auto) (45-73) % Lymph % (Auto) (20-40) % [place] % (Auto) (2-11) % Eos % (Auto) (0-4) % Baso % (Auto) (0-2) % Lymph # (Auto) (1.2-4.9) X10*3/uL [place] # (Auto) (0.1-1.2) X10*3/uL Eos # (Auto) (0.0-0.4) X10*3/uL Baso # (Auto) (0.0-0.2) X10*3/uL Abs Immat Gran (auto) (0.00-0.03) X10*3/uL Absolute Neuts (auto) (2.0-8.3) x10*3/uL Absolute Nucleated RBC (0.0-0.012) X10*3/uL Nucleated RBC % (auto) (0.0-0.2) /100WBC Sodium (135-145) mmol/L Potassium (3.3-5.1) mmol/L Chloride (96-108) mmol/L Carbon Dioxide (22-29) mmol/L Anion Gap (12-20) BUN (9-16) mg/dL Creatinine (0.5-1.4) mg/dL Estim Creat Clear Calc Estimated GFR Random Glucose (60-115) mg/dL Calcium (8.4-10.2) mg/dL Magnesium (1.6-2.6) mg/dL Total Bilirubin (0.0-1.0) mg/dL Direct Bilirubin (0.0-0.5) mg/dL AST (5-31) U/L ALT (0-31) U/L Alkaline Phosphatase (39-117) U/L Troponin I High Sens (<3.5-17.0) ng/L Total Protein (6.5-8.0) g/dL Albumin (3.5-5.0) g/dL Influenza Type A (PCR) NEGATIVE (Negative) Influenza Type B (PCR) NEGATIVE (Negative) RSV RNA Qual (PCR) NEGATIVE (Negative) SARS-CoV-2 RNA (RT-PCR) NEGATIVE (Negative) <RONY Pretty - Last Filed: 07/24/22 16:38> Lab Results 07/24/22 07/24/22 07/24/22 Range/Units 18:37 18:37 18:38 WBC 6.4 (4.8-10.8) X10*3/uL RBC 4.53 (4.20-5.50) X10*6/uL Hgb 13.3 (12.0-16.0) g/dl Hct 40.0 (37.0-47.0) % MCV 88.3 (80.0-98.0) fL MCH 29.4 (27.0-33.0) pg MCHC 33.3 (31.0-35.0) g/dl RDW 12.8 (11.0-16.0) % Plt Count 321 (160-400) X10*3/uL MPV 8.9 L (9.4-12.3) fL Immature Gran % (Auto) 0.3 (0.0-0.4) % Neut % (Auto) 65.0 (45-73) % Lymph % (Auto) 23.1 (20-40) % [place] % (Auto) 8.3 (2-11) % Eos % (Auto) 3.0 (0-4) % Baso % (Auto) 0.3 (0-2) % Lymph # (Auto) 1.5 (1.2-4.9) X10*3/uL [place] # (Auto) 0.5 (0.1-1.2) X10*3/uL Eos # (Auto) 0.2 (0.0-0.4) X10*3/uL Baso # (Auto) 0.0 (0.0-0.2) X10*3/uL Abs Immat Gran (auto) 0.02 (0.00-0.03) X10*3/uL Absolute Neuts (auto) 4.2 (2.0-8.3) x10*3/uL Absolute Nucleated RBC 0.000 (0.0-0.012) X10*3/uL Nucleated RBC % (auto) 0.0 (0.0-0.2) /100WBC Sodium 139 (135-145) mmol/L Potassium 3.5 (3.3-5.1) mmol/L Chloride 103 (96-108) mmol/L Carbon Dioxide 25 (22-29) mmol/L Anion Gap 15 (12-20) BUN 16 (9-16) mg/dL Creatinine 0.81 (0.5-1.4) mg/dL Estim Creat Clear Calc 74.5 Estimated GFR > 60 Random Glucose 283 H (60-115) mg/dL Calcium 9.4 (8.4-10.2) mg/dL Magnesium 2.1 (1.6-2.6) mg/dL Total Bilirubin 0.5 (0.0-1.0) mg/dL Direct Bilirubin 0.2 (0.0-0.5) mg/dL AST 18 (5-31) U/L ALT 19 (0-31) U/L Alkaline Phosphatase 93 (39-117) U/L Troponin I High Sens < 3.5 (<3.5-17.0) ng/L Total Protein 6.8 (6.5-8.0) g/dL Albumin 4.3 (3.5-5.0) g/dL Influenza Type A (PCR) (Negative) Influenza Type B (PCR) (Negative) RSV RNA Qual (PCR) (Negative) SARS-CoV-2 RNA (RT-PCR) (Negative) 07/24/22 Range/Units 18:38 WBC (4.8-10.8) X10*3/uL RBC (4.20-5.50) X10*6/uL Hgb (12.0-16.0) g/dl Hct (37.0-47.0) % MCV (80.0-98.0) fL MCH (27.0-33.0) pg MCHC (31.0-35.0) g/dl RDW (11.0-16.0) % Plt Count (160-400) X10*3/uL MPV (9.4-12.3) fL Immature Gran % (Auto) (0.0-0.4) % Neut % (Auto) (45-73) % Lymph % (Auto) (20-40) % [place] % (Auto) (2-11) % Eos % (Auto) (0-4) % Baso % (Auto) (0-2) % Lymph # (Auto) (1.2-4.9) X10*3/uL [place] # (Auto) (0.1-1.2) X10*3/uL Eos # (Auto) (0.0-0.4) X10*3/uL Baso # (Auto) (0.0-0.2) X10*3/uL Abs Immat Gran (auto) (0.00-0.03) X10*3/uL Absolute Neuts (auto) (2.0-8.3) x10*3/uL Absolute Nucleated RBC (0.0-0.012) X10*3/uL Nucleated RBC % (auto) (0.0-0.2) /100WBC Sodium (135-145) mmol/L Potassium (3.3-5.1) mmol/L Chloride (96-108) mmol/L Carbon Dioxide (22-29) mmol/L Anion Gap (12-20) BUN (9-16) mg/dL Creatinine (0.5-1.4) mg/dL Estim Creat Clear Calc Estimated GFR Random Glucose (60-115) mg/dL Calcium (8.4-10.2) mg/dL Magnesium (1.6-2.6) mg/dL Total Bilirubin (0.0-1.0) mg/dL Direct Bilirubin (0.0-0.5) mg/dL AST (5-31) U/L ALT (0-31) U/L Alkaline Phosphatase (39-117) U/L Troponin I High Sens (<3.5-17.0) ng/L Total Protein (6.5-8.0) g/dL Albumin (3.5-5.0) g/dL Influenza Type A (PCR) NEGATIVE (Negative) Influenza Type B (PCR) NEGATIVE (Negative) RSV RNA Qual (PCR) NEGATIVE (Negative) SARS-CoV-2 RNA (RT-PCR) NEGATIVE (Negative) <Nafisa Candelaria MD - Last Filed: 07/24/22 18:48> Lab Results 07/24/22 07/24/22 07/24/22 Range/Units 18:37 18:37 18:38 WBC 6.4 (4.8-10.8) X10*3/uL RBC 4.53 (4.20-5.50) X10*6/uL Hgb 13.3 (12.0-16.0) g/dl Hct 40.0 (37.0-47.0) % MCV 88.3 (80.0-98.0) fL MCH 29.4 (27.0-33.0) pg MCHC 33.3 (31.0-35.0) g/dl RDW 12.8 (11.0-16.0) % Plt Count 321 (160-400) X10*3/uL MPV 8.9 L (9.4-12.3) fL Immature Gran % (Auto) 0.3 (0.0-0.4) % Neut % (Auto) 65.0 (45-73) % Lymph % (Auto) 23.1 (20-40) % [place] % (Auto) 8.3 (2-11) % Eos % (Auto) 3.0 (0-4) % Baso % (Auto) 0.3 (0-2) % Lymph # (Auto) 1.5 (1.2-4.9) X10*3/uL [place] # (Auto) 0.5 (0.1-1.2) X10*3/uL Eos # (Auto) 0.2 (0.0-0.4) X10*3/uL Baso # (Auto) 0.0 (0.0-0.2) X10*3/uL Abs Immat Gran (auto) 0.02 (0.00-0.03) X10*3/uL Absolute Neuts (auto) 4.2 (2.0-8.3) x10*3/uL Absolute Nucleated RBC 0.000 (0.0-0.012) X10*3/uL Nucleated RBC % (auto) 0.0 (0.0-0.2) /100WBC Sodium 139 (135-145) mmol/L Potassium 3.5 (3.3-5.1) mmol/L Chloride 103 (96-108) mmol/L Carbon Dioxide 25 (22-29) mmol/L Anion Gap 15 (12-20) BUN 16 (9-16) mg/dL Creatinine 0.81 (0.5-1.4) mg/dL Estim Creat Clear Calc 74.5 Estimated GFR > 60 Random Glucose 283 H (60-115) mg/dL Calcium 9.4 (8.4-10.2) mg/dL Magnesium 2.1 (1.6-2.6) mg/dL Total Bilirubin 0.5 (0.0-1.0) mg/dL Direct Bilirubin 0.2 (0.0-0.5) mg/dL AST 18 (5-31) U/L ALT 19 (0-31) U/L Alkaline Phosphatase 93 (39-117) U/L Troponin I High Sens < 3.5 (<3.5-17.0) ng/L Total Protein 6.8 (6.5-8.0) g/dL Albumin 4.3 (3.5-5.0) g/dL Influenza Type A (PCR) (Negative) Influenza Type B (PCR) (Negative) RSV RNA Qual (PCR) (Negative) SARS-CoV-2 RNA (RT-PCR) (Negative) 07/24/22 Range/Units 18:38 WBC (4.8-10.8) X10*3/uL RBC (4.20-5.50) X10*6/uL Hgb (12.0-16.0) g/dl Hct (37.0-47.0) % MCV (80.0-98.0) fL MCH (27.0-33.0) pg MCHC (31.0-35.0) g/dl RDW (11.0-16.0) % Plt Count (160-400) X10*3/uL MPV (9.4-12.3) fL Immature Gran % (Auto) (0.0-0.4) % Neut % (Auto) (45-73) % Lymph % (Auto) (20-40) % [place] % (Auto) (2-11) % Eos % (Auto) (0-4) % Baso % (Auto) (0-2) % Lymph # (Auto) (1.2-4.9) X10*3/uL [place] # (Auto) (0.1-1.2) X10*3/uL Eos # (Auto) (0.0-0.4) X10*3/uL Baso # (Auto) (0.0-0.2) X10*3/uL Abs Immat Gran (auto) (0.00-0.03) X10*3/uL Absolute Neuts (auto) (2.0-8.3) x10*3/uL Absolute Nucleated RBC (0.0-0.012) X10*3/uL Nucleated RBC % (auto) (0.0-0.2) /100WBC Sodium (135-145) mmol/L Potassium (3.3-5.1) mmol/L Chloride (96-108) mmol/L Carbon Dioxide (22-29) mmol/L Anion Gap (12-20) BUN (9-16) mg/dL Creatinine (0.5-1.4) mg/dL Estim Creat Clear Calc Estimated GFR Random Glucose (60-115) mg/dL Calcium (8.4-10.2) mg/dL Magnesium (1.6-2.6) mg/dL Total Bilirubin (0.0-1.0) mg/dL Direct Bilirubin (0.0-0.5) mg/dL AST (5-31) U/L ALT (0-31) U/L Alkaline Phosphatase (39-117) U/L Troponin I High Sens (<3.5-17.0) ng/L Total Protein (6.5-8.0) g/dL Albumin (3.5-5.0) g/dL Influenza Type A (PCR) NEGATIVE (Negative) Influenza Type B (PCR) NEGATIVE (Negative) RSV RNA Qual (PCR) NEGATIVE (Negative) SARS-CoV-2 RNA (RT-PCR) NEGATIVE (Negative) <Dhruv Douglas MD - Last Filed: 07/25/22 11:04> Independent Interpretation I performed an independent interpretation of an: EKG and Plain X-Ray <Dhruv Douglas MD - Last Filed: 07/25/22 11:04> Interpretation: My independent interpretation of 12 EKG done at 1829: Normal sinus rhythm rate of 66, normal MI interval, normal QRS duration QTC interval, no ST segment elevation, no ST segment depression, no PACs, no PVCs from this is a normal EKG. <Dhruv Douglas MD - Last Filed: 07/25/22 11:04> Radiology Impression Discussion of test interpretation with radiology: I have reviewed the radiologist's reading. (My interpretation of this reading is that these findings are not acute, patient has no pneumonia) <Dhruv Douglas MD - Last Filed: 07/25/22 11:04> Radiologist Impression: IMPRESSION: 1. Mild interstitial prominence is nonspecific and could be associated with asthma, bronchitis, reactive airways disease or atypical infections. 2. No focal airspace opacities. 3. No pleural effusion or pneumothorax. 4. No evidence of displaced rib fractures. However, if a rib fracture is highly clinically suspected, recommend correlation with dedicated radiographic images of the rib cage which include oblique views. Dictated By:Lauren AckermanSigned By:<Electronically signed by Lauren Ackerman in [place]>07/24/22 1720 <Dhruv Douglas MD - Last Filed: 07/25/22 11:04> Critical Care Time Critical Care Time Critical Care Time: Yes <Nafisa Candelaria MD - Last Filed: 07/24/22 18:48> Total Critical Care Time: 30 <Nafisa Candelaria MD - Last Filed: 07/24/22 18:48> Attestation: I personally attest to this time spent taking care of the patient. <Nafisa Candelaria MD - Last Filed: 07/24/22 18:48> Discharge Plan Discharge Clinical Impression: Injury of left rotator cuff, Acute hyperglycemia <RONY Pretty - Last Filed: 07/24/22 16:38> Patient Disposition: Home, Self-Care <ROYN Pretty - Last Filed: 07/24/22 16:38> Instructions: Rotator Cuff Injury (ED) <RONY Pretty - Last Filed: 07/24/22 16:38> Additional Instructions: Your blood sugar was high, you should increase the amount of fluid that you drink, avoid carbohydrates and sugar Your exam is consistent with either tendinitis (inflammation of the tendons) of the rotator cuff muscles in injury to the rotator cuff. Treating you with the anti-inflammatory pain medicine prednisone. Take prednisone 20 mg pills, 1 pills once a day for 7 days. While you are taking prednisone, do not take any NSAIDs (Motrin, Advil, ibuprofen, Aleve, naproxen). Follow-up with our orthopedic doctor on-call in 2 weeks for re-evaluation. Please return to the emergency department if your symptoms get worse or if you develop any symptoms that are concerning to you. <RONY Pretty - Last Filed: 07/24/22 16:38> Prescriptions: New prednisone 20 mg tablet 20 mg PO DAILY 7 Days Qty: 7 0RF No Action acetaminophen [Tylenol] 325 mg tablet 650 mg PO Q4H PRN (Reason: pain) Qty: 14 0RF <RONY Pretty - Last Filed: 07/24/22 16:38> Referrals: Louis Quintana MD [Physician] - 2 weeks (Left shoulder pain x2 month, limited ability to lift her left arm overhead secondary to pain, suspect rotator cuff injury versus tendinitis) <RONY Pretty - Last Filed: 07/24/22 16:38>
[2022-07-24 16:35] VITALS: BP 144/90; PULSE 75; RESP 18; TEMP 37.1; O2SAT 96; BMI 25.0
[2022-07-24 18:43] LABS: MANUAL DIFF FLAG NO
[2022-07-24 18:45] LABS: Basophils Percent Auto 0.3 % (0-2); Eosinophils Absolute Auto 0.2 X10*3/uL (0.0-0.4); Hemoglobin 13.3 g/dl (12.0-16.0); Imm Gran Abs Auto 0.02 X10*3/uL (0.00-0.03); Imm Gran Pct Auto 0.3 % (0.0-0.4); Lymphocytes Absolute Auto 1.5 X10*3/uL (1.2-4.9); Lymphocytes Percent Auto 23.1 % (20-40); Mean Corpuscular HGB Conc 33.3 g/dl (31.0-35.0); Mean Corpuscular Hemoglobin 29.4 pg (27.0-33.0); Mean Corpuscular Volume 88.3 fL (80.0-98.0); Mean Platelet Volume 8.9 fL (9.4-12.3); Monocytes Absolute Auto 0.5 X10*3/uL (0.1-1.2); Monocytes Percent Auto 8.3 % (2-11); Neutrophils Absolute Auto 4.2 x10*3/uL (2.0-8.3); Platelet Count 321 X10*3/uL (160-400); Red Blood Count 4.53 X10*6/uL (4.20-5.50); Red Cell Distribution Width 12.8 % (11.0-16.0); White Blood Count 6.4 X10*3/uL (4.8-10.8)
[2022-07-24 19:10] LABS: Alanine Aminotransferase 19 U/L (0-31); Albumin Level 4.3 g/dL (3.5-5.0); Alkaline Phosphatase 93 U/L (39-117); Anion Gap 15 (12-20); Aspartate Amino Transferase 18 U/L (5-31); Bilirubin Direct 0.2 mg/dL (0.0-0.5); Bilirubin Total 0.5 mg/dL (0.0-1.0); Blood Urea Nitrogen 16 mg/dL (9-16); Calcium 9.4 mg/dL (8.4-10.2); Carbon Dioxide 25 mmol/L (22-29); Chloride 103 mmol/L (96-108); Creatinine Clr Calc Pharmacy 74.5; Estimated Glomerular Filt Rate > 60; Glucose Random 283 mg/dL (60-115); Magnesium 2.1 mg/dL (1.6-2.6); Potassium 3.5 mmol/L (3.3-5.1); Sodium 139 mmol/L (135-145); Total Protein 6.8 g/dL (6.5-8.0)
[2022-07-24 19:12] LABS: Troponin-I High Sensitivity < 3.5 ng/L (<3.5-17.0)
[2022-07-24 19:22] LABS: Influenza A PCR NEGATIVE (Negative); Influenza B PCR NEGATIVE (Negative); Resp Syncy Virus RNA Qual PCR NEGATIVE (Negative); SARS COV2 PCR INHOUSE NEGATIVE (Negative)
[2022-07-25 01:38] VITALS: BP 134/62; PULSE 71; RESP 16; O2SAT 98
[2022-07-25 03:22] VITALS: BP 128/62; PULSE 66; RESP 18; TEMP 36.7
--- NOTE | 2022-07-25 04:17 | PC.NURSE ---
Patient is alert and oriented to base line. Denies to be in pain or any discomfort. Vitals are stable. Patient stated that she would like to go home, doctor is notified.
[2022-07-25 06:03] VITALS: BP 122/58; PULSE 69; RESP 14; O2SAT 100
[2022-07-25 07:20] VITALS: BP 142/73; PULSE 65; RESP 13; TEMP 36.6; O2SAT 95
[2022-07-25 09:15] VITALS: BP 104/46; PULSE 73; RESP 16; O2SAT 93
[2022-07-25 10:23] VITALS: BP 123/61; PULSE 67; RESP 11; TEMP 36.6; O2SAT 95
== END 2022-07-25 11:16 | disposition home or self-care (01) ==
PROVIDERS: Physician Assistant; Emergency Provider Emergency Medicine Emergency Medical Services; PCP Internal Medicine
DX: E11.65 Type 2 diabetes mellitus with hyperglycemia (principal); S46.002A Unspecified injury of muscle(s) and tendon(s) of the rotator cuff of left shoulder, initial encounter; X58.XXXA Exposure to other specified factors, initial encounter; Z20.828 Contact with and (suspected) exposure to other viral communicable diseases; I10 Essential (primary) hypertension; E78.5 Hyperlipidemia, unspecified; Y93.9 Activity, unspecified; Y92.9 Unspecified place or not applicable; Y99.9 Unspecified external cause status
CPT/HCPCS: 0241U; 36415; 71045; 80048; 80076; 83735; 84484; 85025; 93005; 99283; 99284

== ENCOUNTER 2022-08-19 17:06 | Outpatient (REF) | payer MEDICAID, SELFPAY ==
--- NOTE | ~2022-08-19 | XR_ITS ---
EXAMINATION: XR SHOULDER, LEFT CLINICAL INFORMATION: Pain. COMPARISON: None TECHNIQUE: AP neutral, scapula Y and axillary views of the left shoulder are submitted. FINDINGS: Bony alignment and mineralization are normal. The glenohumeral joint is intact and shows mild osteoarthritic change. The acromioclavicular and coracoclavicular intervals are normal. There is mild osteoarthritic change of the acromioclavicular joint. No fracture or dislocation is seen. There is cortical irregularity of the greater tuberosity of the proximal left humerus. No soft tissue calcifications or foreign body is seen. There is no left pneumothorax. XR/XR shoulder LT min 2V IMPRESSION: 1. 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 2. Findings suggest left rotator cuff impingement. No satnam calcific tendinitis is noted.
== END 2022-08-19 17:07 | disposition home or self-care (01) ==
LOC: HO.HOSX 17:06
PROVIDERS: Visit Provider Physician Assistant
DX: M75.102 Unspecified rotator cuff tear or rupture of left shoulder, not specified as traumatic (principal); M79.18 Myalgia, other site; M54.12 Radiculopathy, cervical region
CPT/HCPCS: 73030; 99202

== ENCOUNTER 2022-10-14 15:00 | Outpatient (RCR) | payer MEDICAID, SELFPAY ==
--- NOTE | 2022-09-13 15:08 | MHC.PT.EP ---
[facility] [place] Office [place] [facility] [place] Office [address] [place] [address] [phone] F: [phone] F: [phone] F: [phone] F: [phone] Physical Therapy Plan of Care Date of Evaluation: Date of Surgery: Diagnosis: cervicalgia with radiculopathy L shoulder pain, RTC tear(?), subacromial impingement syndrome Assessment: Patient is a 62 y.o. French speaking female who is referred to PT by RONY Muniz, with Dx of cervical radiculopathy, L shoulder RTC tear, L shoulder impingement. PT diagnosis is L shoulder subacromial impingement syndrome with possible L supraspinatus tear. Patient impairments include pain, weakness, limited ROM. Patient current functional limitations are difficulty holding and lifting items, lifting arm overhead to brush hair, lift overhead (high shelf), unable to sleep on involved side. Patient will benefit from skilled PT to address aforementioned impairments and functional limitations to meet established goals. Frequency and Duration: The patient will be seen 2x/week for 4 weeks Short Term Goals: 2 weeks Patient demonstrates consistency and independence with HEP to self manage symptoms. Patient presents with increased R shoulder ER ROM 65 degrees to put on undershirts without difficulty. Bobcat Driver/Labor Goals: 4 weeks Patient presents with increased L shoulder flexion 175 degrees to bursh hair. Patient presents with increased L shoulder flexion 4/5 to be able to lift arm overhead to high shelf. Treatment Plan: Modalities to reduce pain, spasms and effusion. Manual therapy to restore motion and function. Therapeutic exercise to improve strength and flexibility. Neuromuscular re-education for posture and balance. Therapeutic activities to return to functional activities of daily living. Electronically signed by: Guille Sánchez, PT, DPT Please sign and return to therapist. Thank you for your referral.
--- NOTE | 2022-11-27 17:01 | MHC.PT.DC ---
[facility] [place] Office [place] Office [place] Office [address] Caitlin Madrid [address] [phone] F: [phone] F: [phone] F: [phone] F: [phone] Physical Therapy Discharge Report Diagnosis: cervicalgia with radiculopathy L shoulder pain, RTC tear(?), subacromial impingement syndrome Date of Surgery: Date of Evaluation: 09/13/22 Date of Discharge: 10/14/22 Treatments to Date: 9 Cancellations to Date: No Shows to Date: Discharge Status: Achieved Goals Improved Function Independent with HEP Discharge Summary: Pt independent with HEP Significant improvement w/SPADI Patient discharged from PT Electronically signed by: Guille Sánchez, PT, DPT Please sign and return to therapist. Thank you for your referral.
== END 2022-11-27 17:01 | disposition home or self-care (01) ==
LOC: HO.PT 15:00
PROVIDERS: PCP Internal Medicine; Visit Provider Physician Assistant
DX: M54.12 Radiculopathy, cervical region (principal); M79.18 Myalgia, other site; M75.102 Unspecified rotator cuff tear or rupture of left shoulder, not specified as traumatic
CPT/HCPCS: 97110; 97140; 97161

== ENCOUNTER 2022-11-14 14:17 | Outpatient (REF) | payer MEDICAID, SELFPAY ==
--- NOTE | ~2022-11-14 | MM_ITS ---
EXAMINATION: MM SCREENING DIGITAL BREAST TOMOSYNTHESIS, BILATERAL CLINICAL INFORMATION: Screening. Asymptomatic. The lifetime risk of breast cancer based on the Tyrer-Cuzick Model is 4%. COMPARISON: Mammography: 01/07/2019, 04/06/2018, 03/27/2017, 03/22/2016, 03/14/2015; targeted left breast ultrasound 01/07/2019 TECHNIQUE: Digital breast tomosynthesis is performed in both the craniocaudal and mediolateral oblique views along with computer-aided detection (CAD). Synthesized 2D images are generated from the tomosynthesis. FINDINGS: There are scattered areas of fibroglandular density (ACR BI-RADS breast composition Category b). There is fine waxing and waning fibronodular parenchymal pattern. The bilateral axilla and skin contours are unremarkable or visible. Left breast shows no interval mass or architectural abnormality. Again, there is biopsy clip marker central left breast and some stable fine calcifications central breast similar to prior exams. Right breast has fine punctate round calcifications posterior outer breast on CC view, possibly vascular. Calcifications not clearly visualized on MLO view. There is also a small focal nodular asymmetric density retroareolar right breast more conspicuous when compared with prior exam 2018. MM/MM tomosynthesis screening BI IMPRESSION: Right: -Fine calcifications posterior outer breast on CC view, possibly vascular. -Nodular asymmetric density retroareolar right breast. Left: -No significant changes from prior exams. ASSESSMENT: BI-RADS 0: Incomplete - Need Additional Imaging Evaluation RECOMMENDATION: 1. Additional views right breast: Mag CC; Mag ML; spot CC; spot ML. 2. Targeted ultrasound if warranted after review of the additional views. 3. Radiology department staff will contact the patient for additional imaging. This patient's information was entered into a reminder system with a target due date for their next mammogram.
== END 2022-11-14 14:18 | disposition home or self-care (01) ==
LOC: HO.MAMMO 14:17
PROVIDERS: PCP General Practice; Visit Provider General Practice
DX: Z12.31 Encounter for screening mammogram for malignant neoplasm of breast (principal)
CPT/HCPCS: 77063; 77067

== ENCOUNTER 2022-12-17 14:14 | Outpatient (REF) | payer MEDICAID, SELFPAY ==
--- NOTE | ~2022-12-17 | MM_ITS ---
EXAMINATION: MM DIAGNOSTIC DIGITAL BREAST TOMOSYNTHESIS, RIGHT US DIAGNOSTIC ULTRASOUND BREAST, RIGHT CLINICAL INFORMATION: Recall from screening for subtle calcifications posterior outer right breast and benign-appearing nodularity anterior retroareolar right breast, respectively. COMPARISON: Mammography: 11/14/2022, 04/06/2018 TECHNIQUE: Digital breast tomosynthesis is performed. 2D images are generated from the tomosynthesis. The following views are obtained: Magnification right CC, magnification right ML, spot right CC, spot right ML. Ultrasound right breast is targeted to the retroareolar breast using grayscale imaging and color Doppler without and with harmonics. FINDINGS: There are scattered areas of fibroglandular density (ACR BI-RADS breast composition Category b). The additional magnification views show some scattered punctate round calcifications in the posterior 9:30 right breast, likely chronic. No focal grouping or ductal distribution or pleomorphic types. There are also unrelated benign vascular calcifications in this area. The additional spot view shows benign-appearing fibronodular changes retroareolar right breast. No architectural abnormality or significant nodularity. Ultrasound right breast demonstrates small cyst under 5 mm 6:00 retroareolar position. No solid mass or architectural abnormality. Results are discussed with the patient at time of visit, using an brand sales consultant. Management plan is for short interval six-month follow-up right mammography to reassess the probable benign round calcifications posterior outer breast, possibly chronic. MM/MM tomosynthesis added views R IMPRESSION: -Probable benign calcifications posterior outer right breast, possibly chronic. -Tiny incidental cyst retroareolar right breast. ASSESSMENT: BI-RADS 3: Probably Benign RECOMMENDATION: Diagnostic right mammography in 6 months to include magnification views. This patient's information was entered into a reminder system with a target due date for their next mammogram.
== END 2022-12-17 14:15 | disposition home or self-care (01) ==
LOC: HO.MAMMO 14:14
PROVIDERS: PCP General Practice; Visit Provider General Practice
DX: R92.1 Mammographic calcification found on diagnostic imaging of breast (principal); R92.2 Inconclusive mammogram
CPT/HCPCS: 76642; 77061; 77065

== ENCOUNTER 2023-05-30 08:53 | Outpatient (REF) | payer MEDICAID, SELFPAY ==
--- NOTE | ~2023-05-30 | MM_ITS ---
EXAMINATION: MM DIAGNOSTIC DIGITAL BREAST TOMOSYNTHESIS, RIGHT CLINICAL INFORMATION: 6 month Follow-up right breast calcifications upper outer quadrant posterior depth seen on prior magnification views 12/17/2022 COMPARISON: Mammography: 12/17/2022, 11/14/2022, 12/21/2018, and dating back to 2013. TECHNIQUE: Digital breast tomosynthesis is performed in both the craniocaudal and mediolateral oblique views along with computer-aided detection (CAD). Synthesized 2D images are generated from the tomosynthesis. FINDINGS: There are scattered areas of fibroglandular density (ACR BI-RADS breast composition Category b). There are grouped calcifications in the upper outer right breast, which are loosely grouped, have a predominantly punctate morphology, without pleomorphism, branching, or linear forms. No suspicious distribution. Part of these may be vascular calcifications. They are unchanged entirely. Six-month interval follow-up standard magnification views recommended to ensure stability. There is a surgical clip in the central right breast from prior benign biopsy. The overall parenchymal pattern of the right breast is unchanged and stable, with nodular parenchymal markings. MM/MM tomosynthesis diagnostic RT IMPRESSION: Probably benign calcifications upper outer right breast. Correlation with magnification views in the CC and ML projection in 6 months recommended to ensure stability. Otherwise, no suspicious findings within the right breast. Stable benign findings. ASSESSMENT: BI-RADS BI-RADS 3 - Probably benign finding(s) - 6 month follow-up suggested RECOMMENDATION: 6 Month F/U Results were provided to the patient at time of visit by the technologist. This patient's information was entered into a reminder system with a target due date for their next mammogram.
== END 2023-05-30 08:54 | disposition home or self-care (01) ==
LOC: HO.MAMMO 08:53
PROVIDERS: Visit Provider General Practice
DX: R92.1 Mammographic calcification found on diagnostic imaging of breast (principal)
CPT/HCPCS: 77061; 77065

== ENCOUNTER → 2023-05-30 09:30 | Outpatient (BNV) | payer MEDICAID, SELFPAY | PROVIDERS: Visit Provider Radiology Diagnostic Radiology | DX: R92.1 Mammographic calcification found on diagnostic imaging of breast (principal) | CPT/HCPCS: 77061; 77065 ==

== ENCOUNTER 2023-11-03 10:29 | Emergency (ER) | payer MEDICAID, SELFPAY ==
--- NOTE | ~2023-11-03 | CT_ITS ---
EXAMINATION: CT ABDOMEN AND PELVIS WITH CONTRAST CLINICAL INFORMATION: Lower abdominal pain, diarrhea and bloody stools COMPARISON: CT abdomen pelvis 12/02/2012 TECHNIQUE: Multidetector volumetric images were obtained from the superior aspect of the liver through the pubic symphysis following administration 85 mL of Omnipaque 350 intravenous contrast. Sagittal and coronal reformatted images were obtained on the technologist's workstation. Oral contrast: No This CT examination was performed using dose optimization techniques as appropriate, variously including the following: *Automated exposure control *Adjustment of mA and/or kV according to patient size (this includes techniques or standardized protocols for targeted exams where dose is matched to indication/reason for exam; i.e. extremities or head) *Use of iterative reconstruction technique DLP: 391 mGy-cm FINDINGS: LUNG BASES: Bibasilar atelectasis and dependent groundglass changes are seen. Heart size normal. No pleural effusions or consolidations. LIVER, GALLBLADDER, AND BILIARY TREE: The liver is normal in size, shape, and attenuation. No focal hepatic lesion or biliary ductal dilatation is present. The gallbladder is unremarkable with no evidence of radiopaque gallstones, gallbladder wall thickening, or obvious pericholecystic inflammatory changes. PANCREAS: Unremarkable. SPLEEN: Unremarkable. ADRENAL GLANDS: Unremarkable. KIDNEYS AND URETERS: The kidneys are normal in size, shape, and attenuation. No hydronephrosis, hydroureter, or calculi seen. No perinephric stranding. Multiple benign Bosniak class I renal cysts are noted which require no additional imaging or follow-up. No solid renal masses are seen. BLADDER: Unremarkable. GASTROINTESTINAL TRACT: The small and large bowel are unremarkable aside from the presence of some scattered colonic diverticula without diverticulitis. The appendix is unremarkable. ABDOMINAL WALL: No significant hernia is appreciated. LYMPH NODES: No retroperitoneal lymphadenopathy. VASCULAR: Unremarkable. PELVIC VISCERA: The uterus and adnexa are unremarkable. OSSEOUS STRUCTURES: Unremarkable. CT/CT abdomen pelvis w IV con IMPRESSION: A cause for the patient's lower abdominal pain, diarrhea and bloody stools has not been found. Incidental note made of colonic diverticulosis without diverticulitis and benign Bosniak class I renal cysts which need no additional imaging or follow-up. Fleischner guidelines were followed.
[2023-11-03 10:50] VITALS: BP 149/80; PULSE 83; RESP 18; TEMP 36.6; O2SAT 93; BMI 26.3
[2023-11-03 12:15] LABS: MANUAL DIFF FLAG NO
[2023-11-03 12:21] LABS: Basophils Percent Auto 0.3 % (0-2); Eosinophils Absolute Auto 0.1 X10*3/uL (0.0-0.4); Eosinophils Percent Auto 1.6 % (0-4); Hematocrit 41.4 % (37.0-47.0); Hemoglobin 13.9 g/dl (12.0-16.0); Imm Gran Abs Auto 0.01 X10*3/uL (0.00-0.03); Imm Gran Pct Auto 0.2 % (0.0-0.4); Lymphocytes Absolute Auto 1.7 X10*3/uL (1.2-4.9); Lymphocytes Percent Auto 26.9 % (20-40); Mean Corpuscular HGB Conc 33.6 g/dl (31.0-35.0); Mean Corpuscular Hemoglobin 29.3 pg (27.0-33.0); Mean Corpuscular Volume 87.3 fL (80.0-98.0); Mean Platelet Volume 8.7 fL (9.4-12.3); Monocytes Absolute Auto 0.5 X10*3/uL (0.1-1.2); Monocytes Percent Auto 7.5 % (2-11); Neutrophils Absolute Auto 4.1 x10*3/uL (2.0-8.3); Neutrophils Percent Auto 63.5 % (45-73); Platelet Count 332 X10*3/uL (160-400); Red Blood Count 4.74 X10*6/uL (4.20-5.50); Red Cell Distribution Width 12.7 % (11.0-16.0); White Blood Count 6.4 X10*3/uL (4.8-10.8)
[2023-11-03 12:35] LABS: Alanine Aminotransferase 19 U/L (0-31); Albumin Level 4.3 g/dL (3.5-5.0); Alkaline Phosphatase 90 U/L (39-117); Anion Gap 13 (12-20); Aspartate Amino Transferase 18 U/L (5-31); Bilirubin Total 0.7 mg/dL (0.0-1.0); Blood Urea Nitrogen 16 mg/dL (9-16); Calcium 9.7 mg/dL (8.4-10.2); Carbon Dioxide 26 mmol/L (22-29); Chloride 104 mmol/L (96-108); Creatinine Clr Calc Pharmacy 65.5; Estimated Glomerular Filt Rate > 60; Glucose Random 206 mg/dL (60-115); Potassium 3.7 mmol/L (3.3-5.1); Sodium 139 mmol/L (135-145); Total Protein 7.3 g/dL (6.5-8.0)
--- NOTE | 2023-11-03 14:05 | ED.ABDPAIN ---
HPI - Abdominal Pain General Chief Complaint: Abdominal Pain Stated Complaint: Lower abd pain Time Seen by Provider: 11/03/23 13:54 Source: patient, old records reviewed and periodontal assistant Mode of arrival: ambulatory Limitations: no limitations History of Present Illness HPI narrative: 63 yo female with PMH of HLD, HTN, not on thinners who sister of colon cancer, patient had colonoscopy about 10 years ago, here with c/o 2 months of 6lb weight loss, intermittent rectal bleeding, vaginal spotting (has OB appointment November 22), lower abdominal pain. She has not had CT scan or GI appointment. MD elicited complaint: abdominal pain Pertinent past history: none Onset (ago): year(s) (1) Pain Consistency: intermittent Location: RLQ, LLQ, suprapubic and pelvis Severity: moderate Quality: aching Radiation: none Migration to: no migration Exacerbating factors: nothing Relieving factors: nothing Associated symptoms: hematochezia and other (intermittent vaginal spotting) Related Data Home Medications ?Medication ?Instructions ?Recorded ?Confirmed atorvastatin 10 mg tablet 10 mg PO BEDTIME 08/19/22 hydrochlorothiazide 25 mg tablet 25 mg PO QAM 08/19/22 Previous Rx's ?Medication ?Instructions ?Recorded acetaminophen 325 mg tablet 650 mg (2 x 325 mg) PO Q4H PRN 12/28/20 (Tylenol) pain #14 tabs Allergies Allergy/AdvReac Type Severity Reaction Status Date / Time No Known Allergies Allergy Verified 11/03/23 10:51 Review of Systems Review of Systems Constitutional : pos Weight loss, No Fever, No Chills ENT/Mouth : No sore throat, No Rhinorrhea Eyes: No Swelling, No Redness Cardiovascular : No Chest Pain, No SOB, NoEdema Respiratory : No Cough, No Sputum, No Wheezing Gastrointestinal : no Nausea, no Vomiting, no Diarrhea, positive abdominal Pain, No Hematochezia, No Melena Genitourinary : No Dysuria, No Urinary Frequency, No Hematuria, No Urgency , pos vag bleeding Musculoskeletal : No joint pain, No Myalgias, No Joint Swelling Skin : No Skin Lesions, No rash Neuro : No Weakness, No Numbness, No Dizziness, No Headache Psych : No Anxiety/Panic, No Depression Heme/Lymph: No Bruising, No Lymphadenopathy Endocrine : No Polyuria, No Polydipsia All other systems reviewed and are negative. [facility] Past Medical History Attestation statement: The following information was validated with the patient. Source: old records reviewed Medical History HTN (hypertension) High cholesterol Prediabetes Social History Social History Alcohol intake: never Patient Tobacco Use Status: Never used Tobacco Advance Directives: No Advance Directives Information Provided: Yes Current occupational status: employed Current occupation: Cafeteria/ right hand dominant Physical Exam ED Vital Signs: Vital Signs - 24 hr 11/03/23 10:50 11/03/23 15:16 11/03/23 15:38 Temperature 97.9 F 97.7 F Pulse Rate 83 69 Respiratory Rate 18 18 Blood Pressure 149/80 H 140/70 H Pulse Oximetry 93 91 L 95 Oxygen Delivery Method Room Air Room Air Room Air BMI result Body Mass Index 26.3 Appearance: Alert. Oriented X3. No acute distress. Eyes: Pupils equal, round and reactive to light. ENT: Pharynx normal. Neck: Normal inspection. Neck supple. CVS: Normal heart rate and rhythm. Pulses normal. Respiratory: No respiratory distress. Breath sounds normal. Abdomen: Soft and mild lower abdominal ttp Rectal: no blood on digit, clear light brown, non thrombosed ext hemorrhoid, internal hemorrhoid felt Skin: Skin warm and dry. Normal skin color. Normal skin turgor. Extremities: No lower extremity edema. No calf ttp Neuro: Oriented X 3. No motor deficit. No sensory deficit. Course Course Course Narrative: 99% ambulatory O2 walking saturation suspect 91% in error I did stress importance of GI follow up and asked her to call Carleen Salmon MANAGER FINANCIAL as soon as possible. Medical Decision Making Medical Decision Making MDM Narrative: 63 yo female with PMH of HTN, HLD here with c/o family hx of colon cancer but patient has not had colonoscopy > 10 years not on thinners here with c/o rectal bleeding at times, lower abdominal pain, unexplained minor weight loss and vaginal spotting (does have OB appointment November 22). She will need labs, CT scan for mass, rectal exam depending on findings will try to expedite her GI workup. Differential Diagnosis Differential Diagnoses: The differential diagnosis associated with the presentation includes colon cancer, diverticulitis, vaginal bleeding Admission/Observation Consideration of admission/observation: Escalation of care including admission/observation considered no anemia, guiac negative no acute findings on CT scan Lab Data MDM Lab Attestation statement: I reviewed the patient's lab results. 11/03/23 12:11 11/03/23 12:11 Labs: Lab Results 11/03/23 11/03/23 11/03/23 Range/Units 12:11 14:21 14:26 WBC 6.4 (4.8-10.8) X10*3/uL RBC 4.74 (4.20-5.50) X10*6/uL Hgb 13.9 (12.0-16.0) g/dl Hct 41.4 (37.0-47.0) % MCV 87.3 (80.0-98.0) fL MCH 29.3 (27.0-33.0) pg MCHC 33.6 (31.0-35.0) g/dl RDW 12.7 (11.0-16.0) % Plt Count 332 (160-400) X10*3/uL MPV 8.7 L (9.4-12.3) fL Immature Gran % (Auto) 0.2 (0.0-0.4) % Neut % (Auto) 63.5 (45-73) % Lymph % (Auto) 26.9 (20-40) % [place] % (Auto) 7.5 (2-11) % Eos % (Auto) 1.6 (0-4) % Baso % (Auto) 0.3 (0-2) % Lymph # (Auto) 1.7 (1.2-4.9) X10*3/uL [place] # (Auto) 0.5 (0.1-1.2) X10*3/uL Eos # (Auto) 0.1 (0.0-0.4) X10*3/uL Baso # (Auto) 0.0 (0.0-0.2) X10*3/uL Abs Immat Gran (auto) 0.01 (0.00-0.03) X10*3/uL Absolute Neuts (auto) 4.1 (2.0-8.3) x10*3/uL Absolute Nucleated RBC 0.000 (0.0-0.012) X10*3/uL Nucleated RBC % (auto) 0.0 (0.0-0.2) /100WBC Sodium 139 (135-145) mmol/L Potassium 3.7 (3.3-5.1) mmol/L Chloride 104 (96-108) mmol/L Carbon Dioxide 26 (22-29) mmol/L Anion Gap 13 (12-20) BUN 16 (9-16) mg/dL Creatinine 0.80 (0.5-1.4) mg/dL Estim Creat Clear Calc 65.5 Estimated GFR > 60 Random Glucose 206 H (60-115) mg/dL Calcium 9.7 (8.4-10.2) mg/dL Total Bilirubin 0.7 (0.0-1.0) mg/dL AST 18 (5-31) U/L ALT 19 (0-31) U/L Alkaline Phosphatase 90 (39-117) U/L Total Protein 7.3 (6.5-8.0) g/dL Albumin 4.3 (3.5-5.0) g/dL Urine Color Yellow Urine Appearance Clear Urine pH 6.5 (5.0-9.0) Ur Specific [place] 1.015 (1.005-1.025) Urine Protein Negative (Neg-Trace) mg/dL Urine Glucose (UA) Negative (Negative) mg/dL Urine Ketones Negative (Negative) mg/dL Urine Blood Negative (Negative) Urine Nitrite Negative (Negative) Ur Leukocyte Esterase Trace H (Negative) Urine RBC 0-2 (0-2) /HPF Urine WBC 0-5 (0-5) /HPF Ur Squamous Epith Cells 0-2 (0-2) /HPF Urine Bacteria None Seen (None Seen) Hyaline Casts 0-2 (0-2) /LPF Stool Occult Blood NEGATIVE (NEGATIVE) Independent Interpretation I performed an independent interpretation of an: CT Scan (no acute findings) Radiology Impression Discussion of test interpretation with radiology: I have reviewed the radiologist's reading. External Record Review External record reviewed: Office record Medications Administered Discontinued Medications Generic Name Dose Route Start Last Admin Trade Name Freq PRN Reason Stop Dose Admin Iohexol 85 ml 11/03/23 14:51 11/03/23 14:51 Iohexol 350 Mg/Ml 100 Ml Infus..Btl IV 11/03/23 14:52 85 ml ONCE ONE Administration Discharge Plan Discharge Clinical Impression: Abdominal pain, Bright red rectal bleeding Patient Disposition: Home, Self-Care Instructions: Rectal Bleeding (ED), Abdominal Pain (ED) Additional Instructions: follow up with your doctor tomorrow try to schedule outpatient appointment with GI as soon as possible return for worsening symptoms and concerns. Prescriptions: No Action acetaminophen [Tylenol] 325 mg tablet 650 mg PO Q4H PRN (Reason: pain) Qty: 14 0RF atorvastatin 10 mg tablet 10 mg PO BEDTIME hydrochlorothiazide 25 mg tablet 25 mg PO QAM Referrals: Yue Salmon FNP-TRE [Nurse Practitioner] - (call to schedule appointment - GI) Center,[facility] [Primary Care Provider] - (need records to be sent to GI doctor) Print Language: Turkish
[2023-11-03 14:27] LABS: Appearance Urine Clear; Color Urine Yellow; Glucose Urine UA Negative (Negative); Leukocyte Esterase Urine Trace (Negative); Nitrite Urine Negative (Negative); PH 6.5 (5.0-9.0); Specific Gravity - Urine 1.015 (1.005-1.025); UMIC TRIGGER UACC YES; Urine Blood Negative (Negative); Urine Ketones Negative (Negative); Urine Protein Negative (Neg-Trace)
[2023-11-03 14:33] LABS: OBS Int Ctl Valid YES; OBS1 NEGATIVE (NEGATIVE)
[2023-11-03 14:45] LABS: Bacteria Urine None Seen (None Seen); Hyaline Casts Urine 0-2 /LPF (0-2); Squamous Epithelial Cell Urine 0-2 /HPF (0-2); WBC Urine 0-5 /HPF (0-5)
[2023-11-03 14:46] LABS: RBC Urine 0-2 /HPF (0-2)
[2023-11-03] MEDS: iohexoL 350 MG/ML 100 ML INFUS..BTL 85 ML IV (14:51)
[2023-11-03 15:16] VITALS: BP 140/70; PULSE 69; RESP 18; TEMP 36.5; O2SAT 91
[2023-11-03 15:38] VITALS: O2SAT 95
--- NOTE | 2023-11-03 16:14 | MHC.EDTECH ---
Walking o2: Standing next to the bed, Rm Air was 93. Walked around the Main ED, patient's o2 went up to 99 on Rm Air. Steady gait, no complaints.
[2023-11-03 16:34] VITALS: BP 145/72; PULSE 64; RESP 18; TEMP 36.5; O2SAT 95
== END 2023-11-03 16:38 | disposition home or self-care (01) ==
PROVIDERS: Emergency Provider Emergency Medicine
DX: K62.5 Hemorrhage of anus and rectum (principal); R10.30 Lower abdominal pain, unspecified; I10 Essential (primary) hypertension; Z80.0 Family history of malignant neoplasm of digestive organs
CPT/HCPCS: 36415; 74177; 80053; 81001; 82272; 85025; 99283; 99284; Q9967

== ENCOUNTER 2023-11-19 13:45 | Outpatient (REF) | payer MEDICAID, SELFPAY ==
--- NOTE | ~2023-11-19 | MM_ITS ---
EXAMINATION: MM DIAGNOSTIC DIGITAL BREAST TOMOSYNTHESIS, BILATERAL CLINICAL INFORMATION: 6 month follow-up for calcifications right breast upper outer quadrant. Patient also due for bilateral screening. COMPARISON: Mammography: 05/30/2023, 12/17/2022, 11/14/2022 (BI-RADS 0), 12/21/2018, and dating back to 2013. TECHNIQUE: Digital breast tomosynthesis is performed in both the craniocaudal and mediolateral oblique views along with computer-aided detection (CAD). Synthesized 2D images are generated from the tomosynthesis. In addition, 2-D spot magnification right CC and ML views were obtained. FINDINGS: There are scattered areas of fibroglandular density (ACR BI-RADS breast composition Category b). Patient again noted to have fibronodular parenchymal pattern, unchanged. Calcifications in the upper outer right breast are seen to layer on the ML magnification view, highly suggesting milk of calcium. These are likely benign. In addition there are vascular calcifications, and scattered punctate calcifications in the left breast unchanged. There are post benign biopsy clips in the central aspects of both breasts. No suspicious masses, or areas of architectural distortion. The overall fibronodular parenchymal pattern is unchanged from prior examinations. MM/MM tomosynthesis diagnostic BI IMPRESSION: -There are no findings suspicious for malignancy in either breast. -Grouped calcifications in the upper outer right breast predominantly layer on the ML view, highly suggesting milk of calcium. Recommend one-year follow-up with standard magnification views to ensure stability and establish benignity. -Additional stable benign findings as detailed. ASSESSMENT: BI-RADS BI-RADS 3 - Probably benign finding(s) - 12 month follow-up suggested RECOMMENDATION: 12 month diagnostic follow up Results were provided to the patient at time of visit by the technologist. This patient's information was entered into a reminder system with a target due date for their next mammogram.
== END 2023-11-19 13:46 | disposition home or self-care (01) ==
LOC: HO.MAMMO 13:45
PROVIDERS: PCP Internal Medicine; Visit Provider General Practice
DX: R92.1 Mammographic calcification found on diagnostic imaging of breast (principal)
CPT/HCPCS: 77062; 77066

== ENCOUNTER → 2023-11-19 14:00 | Outpatient (BNV) | payer MEDICAID, SELFPAY | PROVIDERS: PCP Internal Medicine; Visit Provider Radiology Diagnostic Radiology | DX: R92.1 Mammographic calcification found on diagnostic imaging of breast (principal) | CPT/HCPCS: 77062; 77066 ==

== ENCOUNTER 2023-11-25 15:36 | Outpatient (REF) | payer MEDICAID, SELFPAY ==
[2023-11-25 16:15] LABS: MANUAL DIFF FLAG NO
[2023-11-25 16:39] LABS: Basophils Percent Auto 0.5 % (0-2); Eosinophils Absolute Auto 0.1 X10*3/uL (0.0-0.4); Eosinophils Percent Auto 1.7 % (0-4); Hematocrit 42.2 % (37.0-47.0); Hemoglobin 14.2 g/dl (12.0-16.0); Imm Gran Abs Auto 0.02 X10*3/uL (0.00-0.03); Imm Gran Pct Auto 0.3 % (0.0-0.4); Lymphocytes Absolute Auto 2.1 X10*3/uL (1.2-4.9); Lymphocytes Percent Auto 31.7 % (20-40); Mean Corpuscular HGB Conc 33.6 g/dl (31.0-35.0); Mean Corpuscular Hemoglobin 29.5 pg (27.0-33.0); Mean Corpuscular Volume 87.6 fL (80.0-98.0); Mean Platelet Volume 9.3 fL (9.4-12.3); Monocytes Absolute Auto 0.7 X10*3/uL (0.1-1.2); Monocytes Percent Auto 10.3 % (2-11); Neutrophils Absolute Auto 3.6 x10*3/uL (2.0-8.3); Neutrophils Percent Auto 55.5 % (45-73); Platelet Count 337 X10*3/uL (160-400); Red Blood Count 4.82 X10*6/uL (4.20-5.50); Red Cell Distribution Width 12.7 % (11.0-16.0); White Blood Count 6.5 X10*3/uL (4.8-10.8)
[2023-11-25 16:44] LABS: Estimated Average Glucose 148 mg/dL; Hemoglobin A1c % 6.8 % (<6.0)
[2023-11-25 17:28] LABS: Alanine Aminotransferase 25 U/L (0-31); Albumin Level 4.6 g/dL (3.5-5.0); Alkaline Phosphatase 101 U/L (39-117); Anion Gap 15 (12-20); Aspartate Amino Transferase 24 U/L (5-31); Bilirubin Direct 0.1 mg/dL (0.0-0.5); Bilirubin Total 0.4 mg/dL (0.0-1.0); Blood Urea Nitrogen 18 mg/dL (9-16); Calcium 10.5 mg/dL (8.4-10.2); Carbon Dioxide 26 mmol/L (22-29); Chloride 103 mmol/L (96-108); Cholesterol 227 mg/dL (<200); Estimated Glomerular Filt Rate > 60; Glucose Random 103 mg/dL (60-115); HDL Cholesterol 52 mg/dL (>40); LDL Cholesterol Calculated 130 mg/dL (<100); Potassium 3.5 mmol/L (3.3-5.1); Sodium 140 mmol/L (135-145); Triglycerides 228 mg/dL (<150)
[2023-11-26 04:17] LABS: ~HepC Num1 0.07 S/CO (0.00-0.79); ~Hepatitis C Antibody Nonreactive (Nonreactive)
[2023-11-27 20:13] LABS: HIV RNA PCR Qn Copies Not Detected Copies/mL; HIV RNA PCR Qn Log Copies Not Detected Log cps/mL
[2023-11-28 00:04] LABS: C. trachomatis RNA TMA NOT DETECTED (NOT DETECTED); N. gonorrhoeae RNA TMA NOT DETECTED (NOT DETECTED); Trichomonas (NAAT) NOT DETECTED (NOT DETECTED)
[2023-11-28 01:54] LABS: HPV mRNA E6/E7 rflx Not Detected (Not Detected)
== END 2023-11-25 15:37 | disposition home or self-care (01) ==
LOC: HO.HHCL 15:36
PROVIDERS: Visit Provider Internal Medicine
DX: Z12.4 Encounter for screening for malignant neoplasm of cervix (principal); Z11.51 Encounter for screening for human papillomavirus (HPV); Z11.4 Encounter for screening for human immunodeficiency virus [HIV]; I10 Essential (primary) hypertension
CPT/HCPCS: 36415; 80048; 80061; 80076; 83036; 85025; 86803; 87491; 87536; 87591; 87624; 87661; 87900; 88142

== ENCOUNTER 2023-12-02 15:26 | Outpatient (AMB) | payer MEDICAID, SELFPAY ==
--- NOTE | 2023-12-02 15:27 | MHC.OFFVIS ---
Vital Signs 12/02/23 15:31 Height 5 ft 2 in Weight 138 lb 14.259 oz BMI 25.4 BP 126/73 Blood Pressure Location Lt brachial Position Sitting Intake Visit Reasons: ER follow up Rectal bleeding /Abd pain Intake Note: Abeby presents in the office as a ER follow up regarding rectal bleeing and abdominal pains. CC: She states that she is still having rectal bleeding - she was told by [facility] that she had a colonoscopy. She states that she is all prepped for the colonoscopy. Manager Long Term Care Required: Yes Manager Long Term Care Name: Boyfriend Allergies No Known Allergies Allergy (Verified 12/02/23 15:33) HPI HPI ER follow up Rectal bleeding /Abd pain: Details: 63-year-old female with past medical history of hyperlipidemia, hypertension is here today for initial consultation. Patient was seen in the ER back in October for rectal bleed. Patient was referred to us for consult. Last colonoscopy was done over 10 years ago. Patient reports normal bowel movements. Patient reports that she is not straining. States that her stools are soft. Patient reports bleeding from him rectum even if no bowel movements. Patient seen her PCP yesterday and was told that she is going to have colonoscopy done today. Patient started prepping yesterday for colonoscopy thinking that colonoscopy will be today. Patient is disappointed at the visit today, accompanied by her boyfriend who helps translating for patient per her request. Patient does speak however enough Macedonian to understand her. Patient reports that there is times when the bleeding subsides, however today patient reports to have rectal pain from diarrhea as well as small amount of blood. Patient denies any weight loss or ribbon like stools. Denies any family history of colorectal cancer. No history of sleep apnea. Not on any anticoagulation medication. No history of infectious diseases in the past or present. Denies any cardiac or respiratory symptoms. [facility] Medical History HTN (hypertension) High cholesterol Prediabetes Surgical History (Updated 12/02/23 @ 15:34 by NURA Beltrán) Hx of colonoscopy Family History (Updated 12/02/23 @ 15:33 by NURA Beltrán) Sister Colon cancer Sister Colon cancer Social History Alcohol intake: never Patient Tobacco Use Status: Never used Tobacco Current occupational status: employed Current occupation: Cafeteria/ right hand dominant Review of Systems Const Denies weight gain and Denies weight loss ENT Reports no additional complaints, Denies dysphagia and Denies odynophagia Card Reports no additional complaints Resp Reports no additional complaints GI Denies abdominal pain, Denies belching, Denies melena, Denies bloating, Reports hematochezia, Denies change in bowel habits, Denies dysphagia, Denies excessive flatus, Denies dyspepsia, Denies heartburn, Denies diarrhea, Denies loose stools, Denies nausea, Denies odynophagia and Denies vomiting Reports no additional complaints Musc Reports no additional complaints Neuro Reports no additional complaints Psych Reports no additional complaints Endo Reports no additional complaints Physical Exam Vital Signs: Last Vital Signs BP 126/73 12/02/23 15:31 BMI result Body Mass Index 25.4 Const General: healthy appearing, no acute distress and well developed Nutritional Appearance: well nourished Orientation/consciousness: patient oriented x3 Resp Effort & Inspection: normal respiratory effort, able to speak in complete sentences, no tracheal deviation and symmetric chest movement Auscultation: clear to auscultation bilaterally Cardio Rate: regular rate GI Inspection: Yes normal to inspection and No distended Palpation (GI): Soft to palpation, not firm, nontender and No hepatosplenomegaly present Auscultation: normal bowel sounds General: Yes no CVA tenderness Back/Spine/Pelvis Back: no CVA tenderness Skin General skin exam: elasticity normal, turgor normal and dry skin Neuro General: patient oriented x3 Psych Appearance: grossly normal Mental Status: mental status grossly normal Assessment & Plan Assessment & Plan (1) Rectal bleed: Code(s): K62.5 - Hemorrhage of anus and rectum (2) Screen for colon cancer: Code(s): Z12.11 - Encounter for screening for malignant neoplasm of colon Plan Seen in October in the ER for rectal bleed. Patient had normal H&H. Patient continues to have rectal bleed, describes as dripping even when no bowel movements at times and has been going on for the past 3 months or so. Patient denies any rectal pain or discomfort. Given by PCP what I believe is a stool softener. Patient described red oval capsule. Patient can continue taking that. Will start using Proctosol to help with hemorrhoids if that is the source of bleeding. Will send message to surgical schedulers to book colonoscopy for patient, however I will see patient back in 6 weeks to re-evaluate and go over the prep again. What to expect before during and after procedure discussed with her. The importance of clear liquid diet and good bowel prep discussed with patient. Both patient and her partner are agreeable to plan of care and verbalizes understanding of instructions. They were given the opportunity to ask questions and all questions answered. Thank you for allowing me to participate in her care Medications: New bisacodyl (Dulcolax (bisacodyl)) take 4 tabs at noon the day before your colonoscopy 20 mg (4 x 5 mg) PO ONCE 1 day 4 tabs 0RF Z12.11 - Encounter for screening for malignant neoplasm of colon polyethylene glycol 3350 (Miralax) As directed by gastroenterology department at [facility] 238 grams PO ONCE 238 grams 0RF Z12.11 - Encounter for screening for malignant neoplasm of colon hydrocortisone 2.5% (Proctosol HC) 1 appl [place] BID-QID PRN 30 grams 2RF hemorrhoids K64.9 - Unspecified hemorrhoids Coding Level of Care Code New Pt Level 3 (41006) Diagnoses Rectal bleed K62.5 Screen for colon cancer Z12.11 Time Spent (min) 40 Comment 30 minutes spent with patient and additional 10 minutes spent reviewing her records
[2023-12-02 15:31] VITALS: BP 126/73; BMI 25.4
== END 2023-12-02 16:28 | disposition home or self-care (01) ==
PROVIDERS: Visit Provider Nurse Practitioner Family
DX: K62.5 Hemorrhage of anus and rectum (principal); Z12.11 Encounter for screening for malignant neoplasm of colon
CPT/HCPCS: 99203

== ENCOUNTER → 2023-12-02 15:26 | Outpatient (BNVA) | payer MEDICAID, SELFPAY | PROVIDERS: Visit Provider Nurse Practitioner Family | DX: K62.5 Hemorrhage of anus and rectum (principal) | CPT/HCPCS: 99212 ==

== ENCOUNTER 2023-12-30 14:40 | Outpatient (AMB) | payer MEDICAID, SELFPAY ==
--- NOTE | 2023-12-30 14:44 | A.OFFVIS_ITS ---
Vital Signs 12/30/23 14:53 Height 5 ft 2 in Weight 140 lb 3.424 oz BMI 25.6 BP 130/70 Blood Pressure Location Lt brachial Position Sitting Pulse 70 Pulse Source Pulse Oximeter Pulse Oximetry (%) 96 Oxygen Delivery Method Room Air Intake Visit Reasons: 6 week f/u per Carleen Intake Note: Abbey presents in office today for a scheduled 6 week FUV. CC; Pt reports that their sx have improved since their last visit. Pt denies any new or significant sx or concerns at this time. Mixed Signal Design Engineer Required: Yes Mixed Signal Design Engineer Name: [id number] Allergies No Known Allergies Allergy (Verified 12/02/23 15:33) HPI HPI 6 week f/u per Carleen: Details: LAST VISIT: Rectal bleed Screen for colon cancer Plan Seen in October in the ER for rectal bleed. Patient had normal H&H. Patient continues to have rectal bleed, describes as dripping even when no bowel movements at times and has been going on for the past 3 months or so. Patient denies any rectal pain or discomfort. Given by PCP what I believe is a stool softener. Patient described red oval capsule. Patient can continue taking that. Will start using Proctosol to help with hemorrhoids if that is the source of bleeding. Will send message to surgical schedulers to book colonoscopy for patient, however I will see patient back in 6 weeks to re-evaluate and go over the prep again. What to expect before during and after procedure discussed with her. The importance of clear liquid diet and good bowel prep discussed with patient. Both patient and her partner are agreeable to plan of care and verbalizes understanding of instructions. They were given the opportunity to ask questions and all questions answered. ? Thank you for allowing me to participate in her care Medications New bisacodyl (Dulcolax (bisacodyl)) take 4 tabs at noon the day before your colonoscopy 20 mg (4 x 5 mg) PO ONCE 1 day 4 tabs 0RF Z12.11 polyethylene glycol 3350 (Miralax) As directed by gastroenterology department at [facility] 238 grams PO ONCE 238 grams 0RF Z12.11 hydrocortisone 2.5% (Proctosol HC) 1 appl [place] BID-QID PRN 30 grams 2RF hemorrhoids K64.9 TODAY'S VISIT Patient is here today for follow-up and to discuss prep before going for colonoscopy. Colonoscopy scheduled for March. Patient reports that she has been doing much better now. Is taking Colace daily and use Proctosol. No longer is having rectal bleed. Patient denies any rectal pain or discomfort. Patient denies any weight loss or ribbon like stools. Denies any family history of colorectal cancer. No history of sleep apnea. Not on any anticoagulation medication. No history of infectious diseases in the past or present. Denies any cardiac or respiratory symptoms. [facility], [facility] Medical History HTN (hypertension) High cholesterol Prediabetes Surgical History Hx of colonoscopy Family History Sister Colon cancer Sister Colon cancer Social History Alcohol intake: never Patient Tobacco Use Status: Never used Tobacco Current occupational status: employed Current occupation: Cafeteria/ right hand dominant Review of Systems Const Denies weight gain and Denies weight loss ENT Reports no additional complaints, Denies dysphagia and Denies odynophagia Card Reports no additional complaints Resp Reports no additional complaints GI Denies abdominal pain, Denies belching, Denies melena, Denies bloating, Denies change in bowel habits, Denies dysphagia, Denies excessive flatus, Denies dyspepsia, Denies heartburn, Denies diarrhea, Denies loose stools, Denies nausea, Denies odynophagia and Denies vomiting Musc Reports no additional complaints Neuro Reports no additional complaints Psych Reports no additional complaints Endo Reports no additional complaints Physical Exam Vital Signs: Last Vital Signs Pulse 70 12/30/23 14:53 BP 130/70 12/30/23 14:53 Pulse Ox 96 12/30/23 14:53 Oxygen Delivery Method Room Air 12/30/23 14:53 BMI result Body Mass Index 25.6 Const General: healthy appearing, no acute distress and well developed Nutritional Appearance: well nourished Orientation/consciousness: patient oriented x3 Resp Effort & Inspection: normal respiratory effort, able to speak in complete sentences, no tracheal deviation and symmetric chest movement Auscultation: clear to auscultation bilaterally Cardio Rate: regular rate GI Inspection: Yes normal to inspection and No distended Palpation (GI): Soft to palpation, not firm, nontender and No hepatosplenomegaly present Auscultation: normal bowel sounds General: Yes no CVA tenderness Back/Spine/Pelvis Back: no CVA tenderness Skin General skin exam: elasticity normal, turgor normal and dry skin Neuro General: patient oriented x3 Psych Appearance: grossly normal Mental Status: mental status grossly normal Assessment & Plan Assessment & Plan (1) Rectal bleed: Code(s): K62.5 - Hemorrhage of anus and rectum (2) Screen for colon cancer: Code(s): Z12.11 - Encounter for screening for malignant neoplasm of colon (3) Hemorrhoid: Code(s): K64.9 - Unspecified hemorrhoids Qualifiers: Hemorrhoid type: unspecified Qualified Code(s): K64.9 - Unspecified h emorrhoids Plan What to expect before during and after procedure discussed with patient. The importance of good bowel prep and clear liquid diet day before procedure discussed with patient. Patient can use wet wipes and Calmoseptine when prepping. I will see patient after the procedure, sooner on as needed basis. She is agreeable to this plan and verbalizes understanding of instructions. She was given the opportunity to ask questions and all questions answered. Thank you for allowing me to participate in her care Coding Level of Care Code Est Pt Level 3 (28728) Diagnoses Rectal bleed K62.5 Screen for colon cancer Z12.11 Hemorrhoids, unspecified hemorrhoid type K64.9 Hemorrhoid type: unspecified Time Spent (min) 30 Comment 20 minutes spent with patient and additional 10 minutes spent reviewing her records
[2023-12-30 14:53] VITALS: BP 130/70; PULSE 70; O2SAT 96; BMI 25.6
== END 2023-12-30 15:28 | disposition home or self-care (01) ==
PROVIDERS: Visit Provider Nurse Practitioner Family
DX: K62.5 Hemorrhage of anus and rectum (principal); Z12.11 Encounter for screening for malignant neoplasm of colon; K64.9 Unspecified hemorrhoids
CPT/HCPCS: 99213

== ENCOUNTER → 2023-12-30 14:40 | Outpatient (BNVA) | payer MEDICAID, SELFPAY | PROVIDERS: Visit Provider Nurse Practitioner Family | DX: Z12.11 Encounter for screening for malignant neoplasm of colon (principal); K62.5 Hemorrhage of anus and rectum; K64.9 Unspecified hemorrhoids | CPT/HCPCS: 99212 ==

== ENCOUNTER 2024-04-01 07:19 | Day surgery (SDC) | payer MEDICAID, SELFPAY ==
[2024-03-19 13:57] VITALS: BMI 25.6
--- NOTE | 2024-03-23 12:19 | HO.ANESPROP2 ---
Documented by User: Nell French NP 03/23/24 12:19 HPI - Anesthesia Eval Consult details Narrative: 64yo F for Colonoscopy PMFSH Active Problems Active Problems: All Active Problems Cervical radiculopathy (Acute) Myofascial pain (Acute) Painful arc syndrome of left shoulder (Acute) Past Medical History Medical History HTN (hypertension) High cholesterol Prediabetes Family History Family History Sister Colon cancer Sister Colon cancer Surgical History Surgical History Hx of colonoscopy Social History Social History Are you a primary primary care provider to a significant other at home: Yes Do you presently have visiting nurse or other home services: No Alcohol intake: never Patient Tobacco Use Status: Never used Tobacco Use of substances other than those prescribed or required for medical reasons: No Are you DNR?: No Advance Directives: No Advance Directives Information Provided: Yes Recently lost weight without trying: No Current occupational status: employed Current occupation: Cafeteria/ right hand dominant Meds Allergies Allergy/AdvReac Type Severity Reaction Status Date / Time No Known Allergies Allergy Verified 04/01/24 08:26 Home Medications ?Medication ?Instructions ?Recorded ?Confirmed ?Last Taken ?Type atorvastatin 10 mg tablet 10 mg PO BEDTIME 08/19/22 04/01/24 Unknown History hydrochlorothiazide 25 mg tablet 25 mg PO QAM 08/19/22 04/01/24 Unknown History metformin 500 mg tablet 500 mg PO BID 04/01/24 04/01/24 Unknown History Exam Height,Weight and Vital Signs: Height 5 ft 2 in Weight 63.503 kg Assessment and Plan Assessment Anesthesia Assessment: Chart Reviewed Documented by User: Nneka Chaves MD 04/01/24 08:54 PMFSH Past Medical History Medical History HTN (hypertension) High cholesterol Prediabetes Family History Family History Sister Colon cancer Sister Colon cancer Family history of problems with anesthesia: No Surgical History Surgical History Hx of colonoscopy History of Problems with Anesthesia: No Social History Social History Are you a primary primary care provider to a significant other at home: Yes Do you presently have visiting nurse or other home services: No Alcohol intake: never Patient Tobacco Use Status: Never used Tobacco Use of substances other than those prescribed or required for medical reasons: No Are you DNR?: No Advance Directives: No Advance Directives Information Provided: Yes Recently lost weight without trying: No Current occupational status: employed Current occupation: Cafeteria/ right hand dominant Meds Allergies Allergy/AdvReac Type Severity Reaction Status Date / Time No Known Allergies Allergy Verified 04/01/24 08:26 Home Medications ?Medication ?Instructions ?Recorded ?Confirmed ?Last Taken ?Type atorvastatin 10 mg tablet 10 mg PO BEDTIME 08/19/22 04/01/24 Unknown History hydrochlorothiazide 25 mg tablet 25 mg PO QAM 08/19/22 04/01/24 Unknown History metformin 500 mg tablet 500 mg PO BID 04/01/24 04/01/24 Unknown History Exam Airway Mallampati Class: II TM Dist: >3cm Neck ROM: Full Heart: rrr Lungs: cta Assessment and Plan Assessment Anesthesia Assessment: Anesthesia Plan Discussed Final Anesthetic Review Family History of Problems with Anesthesia: No History of Problems with Anesthesia: No NPO: Yes ASA Class: II Final Preanesthetic Review: No Changes in Pt Med Stat, Meds/Allgs Chart Reviewed, Consent Obtained/Reviewed and Anes Risks/Benef Reviewed Patient Risk: Low Procedure Risk: Low Anesthetic Plan Anesthetic Plan: MAC: Disposition: Standard PACU
[2024-03-30 11:21] VITALS: BMI 25.6
[2024-03-30 13:51] VITALS: BMI 25.6
[2024-04-01 08:36] VITALS: BMI 24.1
[2024-04-01 08:37] VITALS: BP 116/65; PULSE 69; RESP 16; TEMP 36.6; O2SAT 94
[2024-04-01 08:45] LABS: Glucose, Whole Blood 119 mg/dL (60-115)
--- NOTE | 2024-04-01 08:49 | P.OP_ITS ---
Operative Note Operative Note Narrative: Procedure: Colonoscopy Indication: [Screening] [Personal history of polyps] [Chronic Diarrhea] [Lower GI bleeding] [Anemia] [+ FIT test] [Family history of colon cancer] Endoscopist: Bettina Feliciano MD Anesthesia Provider: Anesthesia type: [MAC] [General Anesthesia] Instrument: Olympus [id number]-[id number] Consent: Indication, risks vs benefits, and alternatives were discussed with the patient who gave written informed consent to proceed. [An certified peer specialist was utilized to assist with the consent]. Monitoring: EKG, pulse, pulse oximetry and blood pressure were monitored throughout the procedure. Please see anesthesia flowsheet. Procedure: The patient was brought to the procedure room and placed in the left lateral decubitus position. IV medications were administered by the anesthesia provider in attendance. A digital rectal exam was performed which was [normal] [abnormal due to finding of hemorrhoids, anal tag, anal fistula]. The colonoscope was then inserted through the anus and advanced through the colon to the cecum at [cm,][and terminal ileum]. Mucosa was carefully examined under high definition white light as the instrument was slowly withdrawn in a retrograde panoramic fashion. Retroflexion was performed in [ascending colon and] rectum. The procedure was [not difficult] [somewhat difficult]. There were no immediate obvious complications. The quality of the prep was BBPS: []+[]+[] = [adequate] [inadequate in] Withdrawal time [] minutes. Limitations: [No limitations.] [Poor prep.] Findings: Mucosa: [Normal to cecum and terminal ileum.] [Loss of normal vacular pattern] [Erythema and congestion] [Erosions and ulceration] [Cobblestoning] [Random biopsies were taken to r/o microscopic colitis] [Cold forceps biopsies were taken from [colon] and sent for histology.] Protruding lesions: * [] [sessile] [semi-pedunculated] [pedunculated] polyp of size [] mm in []colon. Cold snare polypectomy was performed. The polyp was completely removed and retrieved. * [] [sessile] [semi-pedunculated] [pedunculated] polyp of size [] mm in []colon. Cold snare polypectomy was performed. The polyp was completely removed and retrieved. * [] [sessile] [semi-pedunculated] [pedunculated] polyp of size [] mm in []colon. Cold snare polypectomy was performed. The polyp was completely removed and retrieved. * [Medium] [Large] external hemorrhoids [without] stigmata of recent bleeding. Excavated lesions: * [Small] [Medium] [Large] diverticulosis of [sigmoid] [left sided] [whole] colon. Impression: 1. Normal colon mucosa 2. Total of [] polyps removed from [cecum,] [ascending,] [transverse,] [descending,] [and sigmoid] colon [and rectum]. 3. External hemorrhoids Recommendations: - Follow path results. - Repeat colonoscopy in [3] [5-7] [7-10] years if polyps are adenomas or sessile serrated.
--- NOTE | 2024-04-01 08:49 | MHC.SHP ---
Pre-Procedural Eval Section A - 24 Hr Update-Section A only Date of Service: 04/01/24 Section B - Complete if H&P > 30 days Chief Complaint: Rectal bleeding, fam hx of crc Details of Present Illness: HTN (hypertension) High cholesterol Prediabetes Surgical History Hx of colonoscopy Family History Sister Colon cancer Sister Colon cancer Allergies: Allergies Allergy/AdvReac Type Severity Reaction Status Date / Time No Known Allergies Allergy Verified 04/01/24 08:26 Review of Systems Review of Systems Comment: Ten point ROS negative Exam Exam Comment: Gen appear: No acute distress HEENT: no icterus Chest: No overt resp distress Abd: soft, nontender, nondistended Psych: Stable affect, answering questions appropriately Neuro: A/Ox3 noted to move all extremities spontaneously Ext: no peripheral edema Plan Diagnosis/Plan: Unchanged I have reviewed the history and physical and performed a pertinent physical examination on my patient. No changes have occurred unless specified. Time Spent With Patient Time: Total time managing care of this patient today ____ minutes.
[2024-04-01] MEDS: Lactated Ringers 1,000 ML 100 ML IVCONT (08:56)
--- NOTE | 2024-04-01 09:23 | P.OPN-COLO_ITS ---
Colonoscopy Operative Note Operative Note Date of Service: 04/01/24 Narrative: Procedure: Colonoscopy Indication: Rectal bleeding, fam hx of colon ca Endoscopist: Bettina Feliciano MD Anesthesia Provider: Dr Nneka Chaves Anesthesia type: MAC Instrument: Olympus [id number]-[id number] Consent: Indication, risks vs benefits, and alternatives were discussed with the patient who gave written informed consent to proceed. An fulfillment mail clerk was utilized to assist with the consent. EKG, pulse, pulse oximetry and blood pressure were monitored throughout the procedure. Please see anesthesia flowsheet. Procedure: The patient was brought to the procedure room and placed in the left lateral decubitus position. IV medications were administered by the anesthesia provider in attendance. A digital rectal exam was performed which was abnormal due to finding of hemorrhoids. A distal attachment cap was affixed to the tip of the colonoscope which was then inserted through the anus and advanced through the colon to the cecum at 70 cm,and terminal ileum. Appendiceal orifice and ileocecal valve were identified. Mucosa was carefully examined under high definition white light as the instrument was slowly withdrawn in a retrograde panoramic fashion. Retroflexion was performed in rectum. The procedure was not d ifficult. There were no immediate obvious complications. The quality of the prep was BBPS: 1+2+3 = inadequate in cecal pouch Withdrawal time 9 minutes. Limitations: Poor prep. Findings: Mucosa: Solid stool in the cecal pouch that could not be cleared up and obscured >50% of the lumen. Remaining mucosa normal including terminal ileum. Cold forceps biopsies were taken from right and left side to r/o microscopic colitis. One biopsy site on L side bled more than expected and did not cease spontaneously even after 1-2 mins therefore Resolution 360 endoclip was placed with immediate hemostasis Protruding lesions: * 1 sessile polyp of size 4 mm in rectum. Cold snare polypectomy was performed. The polyp was completely removed and retrieved. * Large internal hemorrhoids with stigmata of recent bleeding. Excavated lesions: * Scattered diverticulosis of whole colon. Impression: 1. Inadequate prep in R colon. 2. Total of 1 polyp removed 3. External and internal hemorrhoids 4. Diverticulosis Recommendations: - Follow path results. - Repeat colonoscopy in 1-2 years due to poor prep.
[2024-04-01 09:25] VITALS: BP 91/49; PULSE 62; RESP 16; TEMP 36.6; O2SAT 93
[2024-04-01 09:40] VITALS: BP 113/62; PULSE 60; RESP 14; O2SAT 96
[2024-04-01 09:55] VITALS: BP 110/60; PULSE 63; RESP 15; TEMP 36.6; O2SAT 96
== END 2024-04-01 10:14 | disposition home or self-care (01) ==
PROVIDERS: PCP Internal Medicine; Visit Provider Internal Medicine
PROC: 0DJD8ZZ Inspection of Lower Intestinal Tract, Via Natural or Artificial Opening Endoscopic (ICD-10-PCS; CPT 45378; principal; 2024-04-01 09:00)
DX: K62.5 Hemorrhage of anus and rectum (principal); Z80.0 Family history of malignant neoplasm of digestive organs; K62.1 Rectal polyp; K57.30 Diverticulosis of large intestine without perforation or abscess without bleeding; K64.8 Other hemorrhoids; K64.4 Residual hemorrhoidal skin tags; I10 Essential (primary) hypertension; R73.03 Prediabetes; E78.00 Pure hypercholesterolemia, unspecified; Z79.84 Long term (current) use of oral hypoglycemic drugs; Z79.899 Other long term (current) drug therapy
CPT/HCPCS: 45385; 45380; 82947; 88305; J2704

== ENCOUNTER → 2024-04-01 07:19 | Outpatient (BNV) | payer MEDICAID, SELFPAY | PROVIDERS: PCP Internal Medicine; Visit Provider Internal Medicine | DX: Z12.11 Encounter for screening for malignant neoplasm of colon (principal); Z80.0 Family history of malignant neoplasm of digestive organs; K62.1 Rectal polyp; Z91.199 Patient's noncompliance with other medical treatment and regimen due to unspecified reason; K64.8 Other hemorrhoids; K57.90 Diverticulosis of intestine, part unspecified, without perforation or abscess without bleeding | CPT/HCPCS: 45380; 45385 ==

== ENCOUNTER 2024-04-28 15:54 | Outpatient (REF) | payer MEDICAID, SELFPAY ==
[2024-04-29 12:33] LABS: Creatinine Urine 62.79 mg/dL; Microalbum/Creatinine Ratio Ur 12.7 ug/mg cr (<30)
== END 2024-04-28 15:55 | disposition home or self-care (01) ==
LOC: HO.HHCL 15:54
PROVIDERS: Visit Provider Internal Medicine
DX: E11.9 Type 2 diabetes mellitus without complications (principal)
CPT/HCPCS: 82043; 82570

== ENCOUNTER 2024-05-05 14:07 | Outpatient (AMB) | payer MEDICAID, SELFPAY ==
--- NOTE | 2024-05-05 14:16 | A.OFFVIS_ITS ---
Vital Signs 05/05/24 14:18 Height 5 ft 2 in Weight 131 lb BMI 24.0 BP 116/56 L Blood Pressure Location Rt brachial Position Sitting Pulse 74 Intake Visit Reasons: Hemorrhoids Intake Note: This patient was referred by Dr. Feliciano for hemorrhoids. Pt c/o; reports constipation, reports no rectal bleeding or pain. Colonoscopy: 04/01/2024 Executive Administrative Assistant Required: Yes Executive Administrative Assistant Language: Director Of Operations Services: Executive Administrative Assistant Present Executive Administrative Assistant Name: Mary Information Interpreted: non-clinical & clinical Accompanied by: Self / Same As Patient Allergies No Known Allergies Allergy (Verified 05/05/24 14:17) Medication List - Last Reconciled 05/05/24 by Rodrigue Richards MD acetaminophen (Tylenol) 650 mg (2 x 325 mg) PO Q4H PRN atorvastatin 10 mg PO BEDTIME hydrochlorothiazide 25 mg PO QAM hydrocortisone 2.5% (Proctosol HC) 1 appl WA BID-QID PRN metformin 500 mg PO BID HPI HPI Hemorrhoids: Details: [age] year old female referred for hemorrhoids. She had a colonoscopy last month and she was told that she had hemorrhoids and she was referred to me She describes seeing blood with her stools in the past. She says that she has not seen this in a while. She actually denies any swelling or pain with her hemorrhoids. [facility] Medical History (Updated 05/05/24 @ 14:36 by Rodrigue Richards MD) Internal and external bleeding hemorrhoids HTN (hypertension) High cholesterol Prediabetes Surgical History Hx of colonoscopy Family History Sister Colon cancer Sister Colon cancer Social History Are you a primary critical care registered nurse to a significant other at home: Yes Do you presently have visiting nurse or other home services: No Alcohol intake: never Patient Tobacco Use Status: Never used Tobacco Current occupational status: employed Current occupation: Cafeteria/ right hand dominant Review of Systems Const Denies chills and Denies fever(s) Card Denies chest pain, Denies dyspnea and Denies dyspnea on exertion Resp Denies cough, Denies dyspnea and Denies dyspnea on exertion GI Reports hematochezia and Denies change in bowel habits Denies hematuria Musc Denies back pain and Denies limited range of motion Neuro Denies focal weakness and Denies convulsions Psych Denies depression and Denies mood swings Physical Exam Vital Signs: Last Vital Signs Pulse 74 05/05/24 14:18 BP 116/56 L 05/05/24 14:18 BMI result Body Mass Index 24.0 Const General: comfortable and no acute distress Orientation/consciousness: patient oriented x3 Neck Neck: Yes no lymphadenopathy Resp Auscultation: clear to auscultation bilaterally Cardio Rhythm: regular rhythm GI Other: Rectal exam shows a small external hemorrhoidal column on the right Palpation (GI): Soft to palpation, nontender and no guarding Neuro General: patient oriented x3 Office Procedures Anoscopy She was in destinee-knife position. The anoscope was gently inserted. A full examination of the anal canal was done. There was note of small internal hemorrhoids on both the left and right side. There were no lesions seen. There was no fissure ulceration. There was no induration on digital exam. There was no bleeding. [id number] Assessment & Plan Assessment & Plan (1) Internal and external bleeding hemorrhoids: Code(s): K64.4 - Residual hemorrhoidal skin tags; K64.8 - Other hemorrhoids Category: Medical Plan: She had some episodes of small amounts of blood per rectum. She says that this has not happened in a while She does have internal and external hemorrhoids which are the likely source of her bleeding. She denies any other symptoms. I would not recommend proceeding with hemorrhoidectomy at this time in view of her minimal symptoms. I did tell her that in the future, if there is increasing severity, she is welcome to come back to the office to be re-evaluated for possible hemorrhoidectomy. Coding Level of Care Code New Pt Level 3 (50120) Diagnoses Internal and external bleeding hemorrhoids K64.4; K64.8 CPT Codes Details - CPT: 26244-Cwcxscgb ([id number])
[2024-05-05 14:18] VITALS: BP 116/56; PULSE 74; BMI 24.0
== END 2024-05-05 14:32 | disposition home or self-care (01) ==
PROVIDERS: PCP Internal Medicine; Visit Provider Surgery
DX: K64.4 Residual hemorrhoidal skin tags (principal); K64.8 Other hemorrhoids
CPT/HCPCS: 46600; 99203

== ENCOUNTER → 2024-05-05 14:07 | Outpatient (BNVA) | payer MEDICAID, SELFPAY | PROVIDERS: PCP Internal Medicine; Visit Provider Surgery | DX: K64.4 Residual hemorrhoidal skin tags (principal); K64.8 Other hemorrhoids | CPT/HCPCS: 46600; 99202 ==

== ENCOUNTER 2024-11-22 12:41 | Outpatient (REF) | payer MEDICAID, SELFPAY ==
--- NOTE | ~2024-11-22 | MM_ITS ---
EXAMINATION: MM DIAGNOSTIC DIGITAL BREAST TOMOSYNTHESIS, BILATERAL CLINICAL INFORMATION: Two-year follow-up for grouped calcifications in the upper outer right breast posterior depth. COMPARISON: Mammography: Comparison is made with relevant prior exams. TECHNIQUE: Digital breast mammography with tomosynthesis is performed in both the craniocaudal and mediolateral oblique views along with computer-aided detection (CAD). FINDINGS: The breasts are heterogeneously dense, which may obscure small masses (ACR BI-RADS breast composition Category c). Faint grouped punctate calcifications in the upper outer right breast posterior depth are not significantly changed from prior magnification views dating back for 2 years and therefore benign. Bilateral marker clips. There are no significant masses, abnormal calcifications, or other abnormalities. Results are provided to the patient at time of visit by the technologist. MM/MM tomosynthesis diagnostic BI IMPRESSION: Right: Grouped calcifications in the upper outer quadrant posterior depth are stable dating back for 2 years on magnification views and therefore benign. Marker clip. Left: Benign. ASSESSMENT: BI-RADS BI-RADS 2 - Benign Findings RECOMMENDATION: 1 year F/U This patient's information was entered into a reminder system with a target due date for their next mammogram. Electronically signed by: Denise Reagan DO 11/22/2024 01:24 PM EDT
--- OUTSIDE RECORDS SUMMARY | 2024-11-22 14:08 | XMS_ITS | Encounter Summary ---
Author Organization [employer] [facility] Address [address] [place] [address] Care Team Providers Care County Nurse Name Role Phone Tri Cotto MD Primary Care Provide r Encounter Details Date Type Department Care Team (Late st Contact Info) Description 04/02/2023 Orders Only [facility] [address] [place] [address] [phone] ProviderJacob MD Social History Tobacco Use Types Packs/Day Years Used Date Smoking Tobacco: Never Smokeless Tobacco: Never Alcohol Use Standard Drinks/Week Comments Never 0 (1 standard drink = 0.6 oz pur e alcohol) Depression Answer Date Recorded Patient Health Questionnaire-9 Score 0 08/12/2022 Depression Answer Date Recorded Patient Health Questionnaire-2 Score 0 08/12/2022 Comments Unknown Sex and Gender Information Value Date Recorded Sex Assigned at Female 05/20/2022 10:14 AM EDT Legal Sex Female 10:14 AM EDT Gender Identity Female 05/20/2022 10:14 AM EDT Sexual Orientation Straight 05/20/2022 10 :14 AM EDT documented as of this encounter Plan of Treatment Upcoming Encounters Date Type Department Care Team (Late st Contact Info) Description 12/09/2024 3:30 PM EDT Office Visit [facility] [address] [place] [address] [phone] Tri Cotto MD [address] [place] [address] [phone] documented as of this encounter Procedures Procedure Name Priority Date/Time Associated Diagnosis Comments COLONOSCOPY Routine 07/28/2013 documented in this encounter Results * Hm Colonoscopy (07/28/2013) us Historical Provider HEALTH MAINTENANCE Final Result documented in this encounter Visit Diagnoses Not on filedocumented in this encounter Additional Health Concerns Assessment Noted Time PHQ-9 Depression Total Score: 0 08/12/19 23 3:43 PM EST documented as of this encounter Care Teams County Nurse Relationship Specialty Start Date End Date Tri Cotto MD [address] [place] [phone] PCP - General Family Medicine 04/01/18 documented as of this encounter
--- OUTSIDE RECORDS SUMMARY | 2024-11-22 14:08 | XMS_ITS | Encounter Summary ---
Author Organization [employer] [facility] Address [address] [place] [address] Care Team Providers Care Banana Loader Name Role Phone Tri Cotto MD Primary Care Provide r Encounter Details Date Type Department Care Team (Latest Contact Info) Description 06/24/2019 Abstract [facility] CONVERSIONS Dental, Provider, DDS Social History Tobacco Use Types Packs/Day Years Used Date Smoking Tobacco: Never Assessed Comments Unknown Sex and Gender Information Value [...] Description 12/09/2024 3:30 PM EDT Office Visit [facility] [address] [place] [address] Tri Cotto MD [address] [place] [address] documented as of this encounter Visit Diagnoses Not on filedocumented in this encounter Care Teams Banana Loader Relationship Specialty Start Date End Date Tri Cotto MD [address] [place] [address] PCP - General Family Medicine 04/01/18 documented as of this encounter
--- OUTSIDE RECORDS SUMMARY | 2024-11-22 14:08 | XMS_ITS | Encounter Summary ---
Author Organization [employer] [facility] Address [address] 7[address] [place] [address] Care Team Providers Care Manager Ems Name Role Phone Tri Cotto MD Primary Care Provide r Encounter Details Date Type Department Care Team (Late Contact Info) Description 04/02/2023 Abstract [facility] [address] [place] [address] [phone] Tri Cotto MD [address] [place] [address] [phone] Social History Tobacco Use Types Packs/Day Years [...] Encounters Date Type Department Care Team (Late Contact Info) Description 12/09/2024 3:30 PM EDT Office Visit [facility] [address] [place] [phone] Tri Cotto MD [address] [place] [address] [phone] documented as of this encounter Procedures Procedure Name Priority Date/Time Associated Diagnosis Comments PAP/HPV Routine 11/25/2018 12:00 AM EDT documented in this encounter Results * Pap Smear (11/25/2018 12:00 AM EDT) us Historical Provider HEALTH MAINTENANCE Final Result documented in this encounter Visit Diagnoses Not on filedocumented in this encounter Additional Health Concerns Assessment Noted Time PHQ-9 Depression Total Score: 0 08/12/19 23 3:43 PM EST documented as of this encounter Care Teams Manager Ems Relationship Specialty Start Date End Date Tri Cotto MD [address] [place] [phone] PCP - General Family Medicine 04/01/18 documented as of this encounter
--- OUTSIDE RECORDS SUMMARY | 2024-11-22 14:08 | XMS_ITS | Encounter Summary ---
Author Organization [employer] Address [address] [place] [address] Care Team Providers Care Combustion Analyst Name Role Phone Tri Cotto MD Primary Care Provide r Encounter Details Date Type Department Care Team ([facility] st Contact Info) Description 11/22/2024 Orders Only [facility] [address] [place], [place] [phone] Clarice Bradley MD [address] [place], [place] [phone] Social History Tobacco Use Types Packs/Day Years Used Date Smoking Tobacco: Never Passive Smoke Exposure: Never Smokeless Tobacco: Never Alcohol Use Standard Drinks/Week Comments Never 0 (1 standard drink = 0.6 oz pur e alcohol) Depression Answer Date Recorded Patient Health Questionnaire-9 Score 2 11/25/2023 Patient Health Questionnaire-9 Score 2 11/25/2023 Last PHQ-9: Questionnaire Data Not on file 0 11/25/2023 Housing Stability Answer Date Recorded What is your housing situation today? I have vickey rios 11/25/[address] you li ve. Do you have problems with any of the following? None of the above 11/25/2023 Food Insecurity Answer Date Recorded Within the past 12 months, y ou worried that your food would run out before you got money to buy more: Never True 11/25/2023 Within the past 12 months,th e food you bought just didn't last and you didn't have enough money to get more: Never True 01/2024 Transportation Answer Date Recorded In the past 12 months, has l ack of transportation kept you from medical appts, meetings, work or from getting things needed for daily living? No 11/25/2023 Utilities Answer Date Recorded In the past 12 months, has t he electric, gas, oil or water company threatened to shut off services in your home? No 11/25/2023 Depression Answer Date Recorded Patient Health Questionnaire-2 Score 0 11/25/2023 Internet Access Answer Date Recorded Internet Access Q1 Yes 09/01/2024 Internet Access Q2 Not on file 09/01/2024 Comments No Sex and Gender Information Value Date Recorded Sex Assigned at Female 05/20/2022 10:14 AM EDT Legal Sex Female 10:14 AM EDT Gender Identity Female 05/20/2022 10:14 AM EDT Sexual Orientation Straight 05/20/2022 10 :14 AM EDT documented as of this encounter Plan of Treatment Upcoming Encounters Date Type Department Care Team (Late st Contact Info) Description 12/09/2024 3:30 PM EDT Office Visit [facility] [address] [place] [address] Tri Cotto MD [address] [place] [address] documented as of this encounter Procedures Procedure Name Priority Date/Time Associated Diagnosis Comments BI MAMMOGRAM DIAGNOSTIC TOMOSYNTHESIS BILATERAL Routine 11/22/2024 12:46 PM EDT documented in this encounter Results * BI Mammogram Diagnostic Tomosynthesis Bilateral (11/22/2024 12:46 PM EDT) Anatomical Region Laterality Modality Breast Bilateral Mammography 11/22/2024 12:4 6 PM EDT Narrative 11/22/2024 1:26 PM EDT ? [facility] [place] ? [address] ?[place] [address] ?[phone] ? Mammography Report ? Signed ? Patient: Baca Mi,Abbey M ?MR#: [id number] ?? [id number] ? : 1960 ?Acct:[id number] ? Age/Sex: 64 / F ?ADM Date: 05/05/25 ? Loc: HO.MAMMO ? Attending Dr: Clarice Bradley MD ? Ordering Physician: Clarice Bradley ?Results: 2Benign F ?? indings ? Date of Service: 11/22/24 ?Follow Up: 1 Year From Orig ?? inal Mammogram ? Procedure(s): MM tomosynthesis diagnostic BI ?? Accession Number(s): [id number] ? cc: Tri Cotto MD; Clarice Bradley ? EXAMINATION: ?? MM DIAGNOSTIC DIGITAL BREAST TOMOSYNTHESIS, BILATERAL ? CLINICAL INFORMATION: ? Two-year follow-up for grouped calcifications in the upper outer right ?? breast posterior depth. ? COMPARISON: ?? Mammography: Comparison is made with relevant prior exams. ? TECHNIQUE: ?? Digital breast mammography with tomosynthesis is performed in both the ?? craniocaudal and mediolateral oblique views along with computer-aided ?? detection (CAD). ? FINDINGS: ?? The breasts are heterogeneously dense, which may obscure small masses ?? (ACR BI-RADS breast composition Category c). ?? Faint grouped punctate calcifications in the upper outer right breast ?? posterior depth are not significantly changed from prior magnification ?? views dating back for 2 years and therefore benign. ?? Bilateral marker clips. ?? There are no significant masses, abnormal calcifications, or other ?? abnormalities. ? Results are provided to the patient at time of visit by the ?? technologist. ? MM/MM tomosynthesis diagnostic BI ?? IMPRESSION: ?? Right: Grouped calcifications in the upper outer quadrant posterior ?? depth are stable dating back for 2 years on magnification views and ?? therefore benign. ?? Marker clip. ? Left: ?? Benign. ? ASSESSMENT: ? BI-RADS BI-RADS 2 - Benign Findings ? RECOMMENDATION: ?? 1 year F/U ? This patient's information was entered into a reminder system with a ?? target due date for their next mammogram. ? Electronically signed by: ??Denise Reagan DO ??11/22/2024 01:24 PM EDT ? Dictated By: ?Denise Reagan DO ? Signed By: ?<Electronically signed by Denise Reagan, DO in OV> ? 11/22/24 1324 ? DD/ 1246 ? TD/TT: 11/22/24 1305 ? An/Syq 13 Nav/C2 Operator: ? Procedure Note Donrandal, Image - 11/22/2024 Aiden [facility] [address] [place] [address] Mammography Report Signed Patient: Abbey Herring MMR#: [id number] : 1960cct:[id number] Age/Sex: 64 / FADM Date: 11/22/24 Loc: HO.MAMMO Attending Dr: Clarice Bradley MD Ordering Physician: Christine Bradleyults: 2Benign F indings Date of Service: 11/22/24Follow Up: 1 Year From Orig ina Mammogram Procedure(s): MM tomosynthesis diagnostic BI Accession Number(s): [id number] cc: Tri Cotto MD; Clarice Bradley EXAMINATION: MM DIAGNOSTIC DIGITAL BREAST TOMOSYNTHESIS, BILATERAL CLINICAL INFORMATION: Two-year follow-up for grouped calcifications in the upper outer right breast posterior depth. COMPARISON: Mammography: Comparison is made with relevant prior exams. TECHNIQUE: Digital breast mammography with tomosynthesis is performed in both the craniocaudal and mediolateral oblique views along with computer-aided detection (CAD). FINDINGS: The breasts are heterogeneously dense, which may obscure small masses (ACR BI-RADS breast composition Category c). Faint grouped punctate calcifications in the upper outer right breast posterior depth are not significantly changed from prior magnification views dating back for 2 years and therefore benign. Bilateral marker clips. There are no significant masses, abnormal calcifications, or other abnormalities. Results are provided to the patient at time of visit by the technologist. MM/MM tomosynthesis diagnostic BI IMPRESSION: Right: Grouped calcifications in the upper outer quadrant posterior depth are stable dating back for 2 years on magnification views and therefore benign. Marker clip. Left: Benign. ASSESSMENT: BI-RADS BI-RADS 2 - Benign Findings RECOMMENDATION: 1 year F/U This patient's information was entered into a reminder system with a target due date for their next mammogram. Electronically signed by: Denise Reagan DO 11/22/2024 01:24 PM EDT RP Dictated By: Denise Reagan DO Signed By: <Electronically signed by Denise Reagan DO in OV> 11/22/24 1324 DD/ 1246 TD/TT: 11/22/24 1305 An/Syq 13 Nav/C2 Operator: Clarice Bradley MD IMG BI PROCEDURES Final Result documented in this encounter Visit Diagnoses Not on filedocumented in this encounter Additional Health Concerns Assessment Noted Time PHQ-9 Depression Total Score: 2 11/25/19 24 3:37 PM EDT documented as of this encounter Care Teams Combustion Analyst Relationship Specialty Start Date End Date Tri Cotto MD [address] [place] [phone] PCP - General Family Medicine 04/01/18 documented as of this encounter
--- OUTSIDE RECORDS SUMMARY | 2024-11-22 14:08 | XMS_ITS | Encounter Summary ---
Author Organization [employer] [facility] Address [address] 7[address] [place] [address] Care Team Providers Care Water Treatment Plant Supervisor Name Role Phone Tri Cotto MD Primary Care Provide r Encounter Details Date Type Department Care Team (Latest Contact Info) Description 11/16/2020 Abstract [facility] CONVERSIONS Dental, Provider, DDS Social History Tobacco [...] Description 12/09/2024 3:30 PM EDT Office Visit [facility] [address] [place] [address] Tri Cotto MD [address] [place] [address] documented as of this encounter Visit Diagnoses Not on filedocumented in this encounter Care Teams Water Treatment Plant Supervisor Relationship Specialty Start Date End Date Tri Cotto MD [address] [place] [address] PCP - General Family Medicine 04/01/18 documented as of this encounter
--- OUTSIDE RECORDS SUMMARY | 2024-11-22 14:08 | XMS_ITS | Clinical Summary ---
Author Organization [employer] Address [address] [facility] 7[address] [place] [address] Care Team Providers Care Heating And Air Conditioning Mechanic Name Role Phone Tri Cotto MD Primary Care Provide r Allergies No known active allergies Medications acetaminophen (Tylenol 8 Hour) 650 MG ER tablet Take 1 tablet by mouth every 8 (eight) hours. 1 Active baclofen (Lioresal) 10 MG tablet Take 1 tablet by mouth in the morning and 1 tablet at noon and 1 tablet in the evening. 1 Active meclizine (Antivert) 12.5 MG tablet Take 2 tablets by mouth every 8 (eight) hours. 0 Active naproxen (Naprosyn) 500 MG tablet Take 1 tablet by mouth in the morning and 1 tablet in the evening. 1 Active predniSONE (Deltasone) 20 MG tablet Take 20 mg by mouth in the morning. 3 Active hydroCHLOROthiazi de (HYDRODiuril) 25 MG tabletIndications :Primary hypertension Take 1 tablet (25 mg) by mouth in the morning. 90 tablet 3 4 Active metFORMIN (Glucophage) 500 MG tabletIndications :Newly diagnosed diabetes (CMS/HCC) Take 1 tablet (500 mg) by mouth with breakfast and with evening meal. 60 tablet 11 4 01/26/20 25 Active Blood Glucose Monitoring Suppl (FreeStyle Home Lite) w/Device kitIndications:Ne wly diagnosed diabetes (CMS/HCC) Use to test blood sugar 2 times daily 1 kit 4 Active atorvastatin (Lipitor) 20 MG tabletIndications :Primary hypertension Take 1 tablet (20 mg) by mouth Once per day. 30 tablet 11 4 01/26/20 25 Active TRUEplus Lancets 33G miscIndications:N ewly diagnosed diabetes ([facility]) USE DIRECTED TO TEST BLOOD SUGAR TWICE DAILY 100 each 3 4 Active FREESTYLE LITE test stripIndications: Type 2 diabetes mellitus without complication, without long-term current use of insulin ([facility]) Use to test blood sugar 2 times daily 100 each 12 5 09/13/19 26 Active Alcohol Swabs 70 % padsIndications:T ype 2 diabetes mellitus without complication, without long-term current use of insulin ([facility]) Use to test blood sugar 2 times daily 100 each 1 5 Active Active Problems Problem Noted Date Diagnosed Date Type 2 diabetes mellitus wit hout complication, without long-term current use of insulin 04/28/2024 Assessment & Plan (09/13/2024 2:36 PM EST): Diabetes is: controlled - Lab Results Component Value Date HGBA1C 6.6 (A) 09/13/2024 HGBA1C 6.5 (A) 04/28/2024 HGBA1C 6.8 (H) 11/25/2023 - Lab Results Component Value Date MICROALBUR 8.0 04/28/2024 CREATININE 0.77 11/25/2023 -Changes: none - Diabetic eye exam:up to date - Diabetic foot exam:up to date - Continue lifestyle modifications - Continue current medications - Follow up: 3 months Assessment & Plan (04/28/2024 3:34 PM EDT): Diabetes is: controlled - Lab Results Component Value Date HGBA1C 6.8 (H) 11/25/2023 - Lab Results Component Value Date CREATININE 0.77 11/25/2023 -Changes: continue for now with metformin 500mg daily if she is not tolerating medication by next visit I will switch it to jardiance - Diabetic eye exam:referral today - Diabetic foot exam: pending - Continue lifestyle modifications - Continue current medications - Follow up: 3 months Polyarthralgia 04/28/2024 Assessment & Plan (04/28/2024 3:33 PM EDT): Acetaminophen PRN Newly diagnosed diabetes 01/26/2024 Assessment & Plan (01/27/2024 4:50 PM EDT): Diabetes is: almost at goal - Lab Results Component Value Date HGBA1C 6.8 (H) 11/25/2023 - Lab Results Component Value Date CREATININE 0.77 11/25/2023 -Changes: I started with prescription metformin 500mg BID, supplies for diabetes prescribe I instructed to log glucose for next appt - Diabetic eye exam:referral pending - Diabetic foot exam:referral pending - Continue lifestyle modifications - Continue current medications - Follow up: 3 months Encounter for Papanicolaou s mearomeo for cervical cancer screening 11/25/2023 Assessment & Plan (11/25/2023 4:20 PM EDT): PAP and pelvic exam done, she will be contacted with results Hyperlipidemia 05/13/2012 Assessment & Plan (04/28/2024 3:35 PM EDT): C/w atorvastatin 20mg daily Hypertension 05/13/2012 Assessment & Plan (09/13/2024 2:34 PM EST): I advised low-sodium diet Will continue with same medication regimen hydrochlorothiazide 25 mg daily I advised also to continue with her atorvastatin 20 mg daily Assessment & Plan (04/28/2024 3:35 PM EDT): Controlled c/w same medications and low Na diet Assessment & Plan (01/27/2024 4:49 PM EDT): I went up on atorvastatin to 20mg in light of new diabetes diagnosis - Aerobic exercise to reduce BP. Initial goal of 30 min walk 3-5x/week. Increase as tolerated. - low-sodium diet (goal: <2g/day) and heart healthy diet such as DASH to reduce BP and prevent ASCVD. - Home BP monitoring 1-2 x day with goal of <140/90. - Seek immediate medical attention for chest pain, palpitations, SOB, syncope, or sudden changes in mental status. - Do not change or discontinue current prescriptions without first consulting health care provider Assessment & Plan (11/25/2023 4:20 PM EDT): - Aerobic exercise to reduce BP. Initial goal of 30 min walk 3-5x/week. Increase as tolerated. - low-sodium diet (goal: <2g/day) and heart healthy diet such as DASH to reduce BP and prevent ASCVD. - Home BP monitoring 1-2 x day with goal of <140/90. - Seek immediate medical attention for chest pain, palpitations, SOB, syncope, or sudden changes in mental status. - Do not change or discontinue current prescriptions without first consulting health care provider Encounters Date Type Department Care Team Description 11/22/2024 Orders Only [facility] [address] [place] [phone] Clarice Bradley MD 10/01/2024 [facility] Risk Score [facility] () Department [address] [phone] Provider, Population Health Generic 09/30/2024 2:00 PM EDT Office Visit [facility] OPTOMETRY [address] [place] [address] Mckinley, Nette, OD Presbyopia (Primary Dx) 09/13/2024 1:45 PM EST Office Visit [facility] [address] [place] [address] Tri Cotto MD Primary hypertension (Primary Dx); Type 2 diabetes mellitus without complication, without long-term current use of insulin ([facility]) 09/13/2024 Travel 09/08/2024 Telephone [facility] [address] [place] [address] Tri Cotto MD Chart Prep 09/01/2024 Patient Outreach [facility] [address] [place], [place] [phone] Tri Cotto MD Pre-visit Planning (SDOH negative, Tobacco screening negative. ) from Last 3 Months Immunizations Name Administration Dates Next Due Hep B, adult 12/26/1999,06/27/1997,05/27/1997 Influenza Injectable Quadriv alant Preservative Free IIV4 MDCK 04/19/2023,04/09/2022,04/13/2021,2018 Influenza injectable quadriv alent preservative free 09/22/2018,04/22/2017,04/14/2015 Influenza, IIV3, injectable 05/11/2014 Influenza, Split (incl. reed fied surface antigen) 04/05/2013,05/13/2012 Influenza, seasonal, injecta ble, preservative free 04/28/2024,05/07/2016 MMR 05/27/1997 Moderna Covid-19 Vaccine 12+ 12/06/2021 Moderna Covid-19 Vaccine 6+ Bivalent 07/29/2022 Pfizer Covid-19 Vaccine 12+ 04/28/2024, Pneumococcal Conjugate PCV 20 03/07/2023 TD (adult), 2 Lf tetanus tox oid, preservative free, adsorbed 07/16/2007,05/18/1997 Tdap 08/04/2013 Zoster, Recombinant 07/22/2023,03/07/2023 Social History Tobacco Use Types Packs/Day Years [...] Orientation Straight 05/20/2022 10 :14 AM EDT Last Filed Vital Signs Vital Sign Reading Time Taken Comments Blood Pressure 134/78 09/13/2024 2:01 PM EST Pulse 96 09/13/2024 1:45 PM EST Temperature 36.3 ??C (97.4 ??F) 09/13/2024 1:45 PM ES T Respiratory Rate 20 09/13/2024 1:45 PM EST Oxygen Saturation 95% 04/28/2024 2:46 PM EDT Inhaled Oxygen Concentration - - Weight 59.5 kg (131 lb 2 oz) 09/13/2024 1:45 PM EST Height 157.5 cm (5' 2 ) 09/13/2024 1:45 PM EST Body Mass Index 23.98 09/13/2024 1:45 PM EST Plan of Treatment Upcoming Encounters Date Type Department Care Team (Late st Contact Info) Description 12/09/2024 3:30 PM EDT Office Visit [facility] [address] [place] [address] Tri Cotto MD [address] [place] [address] Health Maintenance Due Date Last Done Comments CT Colonography 1962 FIT DNA/Cologuard 1962 FIT 1962 FOBT 1960 HIV Screening 1960 Sigmoidoscopy 1960 Diabetes: Foot Exam 02/25/1972 Alcohol/Substance Use Screening 1974 Dental X-Ray: Full Mouth 11/16/2017 11/15/2014 Dental Oral Exam 07/04/2023 01/01/2023, , 07/29/2019, Additional history exists Dental Prophylaxis 07/04/2023 01/01/2023, 0 08/29/2021, 11/16/2020, Additional history exists DTaP/Tdap/Td Vaccines (2 - Td or Tdap) 08/04/2023 08/04/2013, 07/16/2007, 05/18/1997 Dental X-Ray: Bitewings 01/03/2024 01/02/20 23, 06/24/2019, 03/18/2018, Additional history exists Diagnostic Breast Imaging 05/21/20242024, 11/19/2023, 05/30/2023, Additional history exists Mammogram 05/21/2024 11/22/2024, 050 07/2023, 05/30/2023, Additional history exists Depression Screening 11/24/2024 11/25/2023, 11/25/19 Lipid Panel 11/24/2024 11/25/2023 Diabetes: Hemoglobin A1C 03/13/2025 025, 04/28/2024, 11/25/2023 Diabetes: Urine Protein Screening 04/28/2025 04/28/2024 SDOH Screening 09/01/2025 09/01/2024 Tobacco Screening 09/13/2025 09/13/2024 Colonoscopy 04/01/2026 04/01/2024, 07/28/2013 Colorectal Cancer Screening 04/01/2026 Eye Exam 08/24/2026 08/24/2024, 10/2024, 08/24/2024, Additional history exists Cervical Cancer Screening 11/24/2028 HPV/Cotest 11/24/2028 11/25/2023, 11/25/2018 Pap Smear 11/24/2028 11/25/2023, 01/2024, 11/25/2018 RSV Patients and Patients Aged 60 years or older (1 - 1-dose 75+ series) 2037 Hepatitis B Vaccines Completed 12/26/1999, 06/27/1997, 05/27/1997 Pneumococcal Vaccine: 50+ Years Completed 03/07/2023 Zoster Vaccines Completed 07/22/2023, 03/07/2023 Hepatitis C Screening Completed 11/25/2023 COVID-19 Vaccine Completed 04/28/2024, , 07/29/2022, Additional history exists Influenza Vaccine Completed 04/28/2024, , 04/09/2022, Additional history exists HIB Vaccines Aged Out No longer eligi ble based on patient's age to complete this topic HPV Vaccines Aged Out No longer eligi ble based on patient's age to complete this topic Hepatitis A Vaccines Aged Out No long er eligible based on patient's age to complete this topic IPV Vaccines Aged Out No longer eligi ble based on patient's age to complete this topic Meningococcal Vaccine Aged Out No naomie rashid eligible based on patient's age to complete this topic RSV under 20 months Aged Out No longe r eligible based on patient's age to complete this topic Rotavirus Vaccines Aged Out No longer eligible based on patient's age to complete this topic Procedures Procedure Name Priority Date/Time Associated Diagnosis Comments BI MAMMOGRAM DIAGNOSTIC TOMOSYNTHESIS BILATERAL Routine 11/22/2024 12:46 PM EDT POCT GLYCATED HEMOGLOBIN, TOTAL Routine 09/13/2024 1:51 PM EST Type 2 diabetes mellitus without complication, without long-term current use of insulin (CMS/HCC) POCT GLUCOSE Routine 09/13/2024 1:45 PM EST Type 2 diabetes mellitus without complication, without long-term current use of insulin (CMS/HCC) ALBUMIN, RANDOM URINE W/CREATININE Routine 04/28/2024 3:55 PM EDT Type 2 diabetes mellitus without complication, without long-term current use of insulin (CMS/HCC) HM COLONOSCOPY Routine 04/01/2024 HEPATITIS C AB W/REFL TO HCV RNA, QN, PCR Routine 11/25/2023 3:37 PM EDT Primary hypertension LIPID PANEL, STANDARD Routine 11/25/2023 3:37 PM EDT Primary hypertension HPV MRNA E6/E7 REFLEX TO HPV 16, 18/45 Routine 11/25/2023 3:31 PM EDT IMAGE-GUIDED PAP W/AGE BASED SCR,W/CT/NG/TRICH Routine 11/25/2023 3:31 PM EDT Encounter for Papanicolaou smear for cervical cancer screening Full PROPHYLAXIS - ADULT Routine 01/01/2023 3:00 PM EDT BITEWINGS - 4 RADIOGRAPHIC IMAGES Routine 01/01/2023 3:00 PM EDT PERIODIC ORAL EVALUATION - ESTABLISHED PATIENT Routine 01/01/2023 3:00 PM EDT INTRAORAL - COMPLETE SERIES OF RADIOGRAPHIC IMAGES Routine 11/15/2014 12:00 AM EDT from Last 3 Months or Most Recently Relevant to Health Maintenance Results * BI Mammogram Diagnostic Tomosynthesis Bilateral (11/22/2024 12:46 PM EDT) Anatomical Region Laterality Modality Breast Bilateral Mammography 11/22/2024 12:4 6 PM EDT Narrative 11/22/2024 1:26 PM EDT ? [facility] ? [address] ?[place] [address] ?[phone] ? Mammography Report ? Signed ? Patient: Phuong Mi,Abbey M ?MR#: MM ?? [id number] ? : 1960 ?Acct:[id number] ? Age/Sex: 64 / F ?ADM Date: 05/05/25 ? Loc: HO.MAMMO ? Attending Dr: Clarice Bradley MD ? Ordering Physician: Clarice Bradley ?Results: 2Benign F ?? indings ? Date of Service: 11/22/24 ?Follow Up: 1 Year From Orig ?? inal Mammogram ? Procedure(s): MM tomosynthesis diagnostic BI ?? Accession Number(s): [id number] ? cc: Tri Cotto MD; Clarice Bradley [...] ??Denise Reagan DO ??11/22/2024 01:24 PM EDT ?? RP ? Dictated By: ?Denise Reagan DO ? Signed By: ?<Electronically signed by Denise Reagan, DO in OV> ? 05/05/25 1324 ? DD/DT: 05/05/ 1246 ? TD/TT: 11/22/24 1305 ? Drying Oven Tender: ? Procedure Note [place]ter, Image - 11/22/2024 [facility] [address] [place] [address] Mammography Report Signed Patient: Abbey Herring MMR#: [id number] : 2Acct:[id number] Age/Sex: 64 / FADM Date: 11/22/24 Loc: HO.MAMMO Attending Dr: Clarice Bradley MD Ordering Physician: Christine Bradleyults: 2Benign F indings Date of Service: 11/22/24Follow Up: 1 Year From Orig inal Mammogram Procedure(s): MM tomosynthesis diagnostic BI Accession Number(s): [id number] cc: Tri Cotto MD; Clarice Bradley EXAMINATION: [...] 11/22/24 1324 DD/ 1246 TD/TT: 11/22/24 1305 Drying Oven Tender: Clarice Bradley MD IMG BI PROCEDURES Final Result * (ABNORMAL) POCT HGB A1C (09/13/2024 1:51 PM EST) Hemoglobin A1C 6.6(A) 4.0 - 6.0 % QC Media Lot # [id number] Lot# Expiration Date Blood 09/13/2024 1:51 PM EST Tri Durbin MD POINT OF CARE TEST EN TER/EDIT ORDERABLES Final Result * POCT Glucose (09/13/2024 1:45 PM EST) Glucose Blood, POC 144 60 - 200 mg/dL QC Media Lot # [id number] Lot# Expiration Date Blood Capillary blood specimen / Unknown 09/13/2024 1:45 PM EST Tri Durbin MD POINT OF CARE TEST EN TER/EDIT ORDERABLES Final Result * Albumin, Random Urine W/Creatinine (04/28/2024 3:55 PM EDT) Creatinine, Urine 62.79 mg/dL [facility] Microalbumin Urine 8.0 mg/L [facility] Microalbum Creatinine Ratio Ur 12.7 <30 ug/mg cr [facility] Comment:Albumin/Creatinine R atio Reference Ranges: Normal: < 30 ug/mg creatinine Microalbuminuria: 30 - 300 ug/mg creatinineClinical Albuminuria: > 300 ug/mg creatinine Urine (Urine, Random) 04/28/2024 3:55 PM EDT 04/29/2024 11:44 AM EDT Narrative [facility] - 04/29/2024 12:33 PM EDT Tri Durbin MD LAB URINE ORDERABLES Final Result Performing Organization Address [facility] Co de Phone Number [facility] [address] [place] [address] [phone] * Hm Colonoscopy (04/01/2024) Colonoscopy Normal Normal Narrative Dipika Amanda - 04/01/2024 - Repeat colonoscopy in 1-2 years due to poor prep. See external hospital admission note on 04/01/2024 Jacob Gloria MD HEALTH MAINTENANCE Final Result * Hepatitis C Antibody with Reflex to HCV, RNA, Quantitative, Real-Time PCR (11/25/2023 3:37 PM EDT) Hepatitis C Antibody Nonreactive Nonreactive [facility] Comment:Antibodies to HCV no t detected; does not exclude early acuteHCV infection. Blood Venous blood specimen / Unknown 11/25/2023 3:37 PM EDT 11/25/2023 4:12 PM EDT Tri Durbin MD LAB BLOOD ORDERABLES Final Result Performing Organization Address [facility] Co de Phone Number [facility] [address] [place] [address] [phone] * (ABNORMAL) Lipid Panel, Standard (11/25/2023 3:37 PM EDT) Triglycerides 228(H) <150 mg/dL [facility] Comment:Desirable Triglyceri de: less than 150 mg/dLBorderline High Triglyceride 150-199 mg/dLHigh Triglyceride: 200-499 mg/dLVery High Triglyceride: greater than or equal to 5OO mg/dL Cholesterol 227(H) <200 mg/dL [facility] Comment:Desirable Cholestero l: less than 200 mg/dLBorderline High Cholesterol: 200-239 mg/dLHigh Cholesterol: greater than 239 mg/dL LDL Cholesterol Calculated 130(H) <100 mg/dL [facility] Comment:Desirable LDL: less than 100 mg/dLNear Optimal/Above Optimal LDL: 110- 129 mg/dLBorderline High LDL: 130-159 mg/dLHigh LDL: 160-189 mg/dLVery High LDL: greater than or equal to 190 mg/dL HDL Cholesterol 52 >40 mg/dL [facility] Comment:Desirable HDL: great er than 40 mg/dL Note: This HDL assay may give artificially low results in patients with liver disease. Blood Venous blood specimen / Unknown 11/25/2023 3:37 PM EDT 11/25/2023 4:12 PM EDT Tri Durbin MD LAB BLOOD ORDERABLES Final Result [facility] [address] [place] [address] [phone] * Image-Guided Pap with Age-Based Screening??with CT/NG,??Trichomonas (11/25/2023 3:31 PM EDT) Trichomonas (NAAT) NOT DETECTED NOT DETECTED [facility] Comment:The analytical perfo rmance characteristics of thisassay have been determined by [employer]. Themodifications have not been cleared or approved bythe FDA. This assay has been validated pursuant to theCLIA regulations and is used for clinical purposes.For additional information, please refer tohttp://education.[employer]/faq/Trichomonastma(This link is being provided for information/educational purposes only.)THIS TEST WAS PERFORMED AT:[facility] [address] [id number] HEATON MD CTNG Ref Lab NOT DETECTED NOT DETECTED [facility] NG Ref Lab NOT DETECTED NOT DETECTED [facility] Pap Vial Vaginal structure / Unknown 11/25/2023 3:31 PM EDT 11/26/2023 8:20 AM EDT us Tri Durbin MD LAB CYTOLOGY ORDERABL ES Final Result Performing Organization Address [facility]/ZIP Co de Phone Number [facility] [address] [place] [address] [phone] * HPV mRNA E6/E7 w/Reflex to HPV Genotypes 16, 18/45 (11/25/2023 3:31 PM EDT) HPV nRNA E6/E7 Not Detected Not Detected [facility] Comment:Methodology: Transcr iption-Mediated AmplificationThis assay detects E6/E7 viral messenger RNA (mRNA) from 14high-risk HPV types (16,18,31,33,35,39,45,51,52,56,58,59,66,68).Cervical sources are required for HPV testing.If a vaginal source from a patient who has had atotal hysterectomy with removal of cervix wassubmitted, please contact the testing laboratoryfor alternative testing options.For additional information, please refer tohttp://education.[employer]/faq/IPJ203h7(This link if provided for information/educational purposes only.)THIS TEST WAS PERFORMED AT:[facility] [place] [id number] HEATON MD HPV mRNA E6/E7 TNP [facility] HPV 16 RNA [facility] HPV 18/45 RNA [facility] 11/25/2023 3:31 PM EDT 11/26/2023 8:20 AM EDT us Tri Durbin MD LAB CYTOLOGY ORDERABL ES Final Result Performing Organization Address City/[facility]/ZIP Co de Phone Number [facility] [address] [place] [phone] from Last 3 Months or Most Recently Relevant to Health Maintenance Insurance HSN PARTIAL [facility] C3 DENTAL-[facility] MEDICAID STAND ADULT Care Teams Heating And Air Conditioning Mechanic Relationship Specialty Start Date End Date Tri Cotto MD [address] [place] [phone] PCP - General Family Medicine 04/01/18
== END 2024-11-22 12:42 | disposition home or self-care (01) ==
LOC: HO.MAMMO 12:41
PROVIDERS: PCP Internal Medicine; Visit Provider General Practice
DX: R92.1 Mammographic calcification found on diagnostic imaging of breast (principal)
CPT/HCPCS: 77062; 77066

== ENCOUNTER → 2024-11-22 13:00 | Outpatient (BNV) | payer MEDICAID, SELFPAY | PROVIDERS: PCP Internal Medicine; Visit Provider Internal Medicine | DX: R92.1 Mammographic calcification found on diagnostic imaging of breast (principal) | CPT/HCPCS: 77062; 77066 ==

== ENCOUNTER 2024-12-09 15:23 | Outpatient (REF) | payer MEDICAID, SELFPAY ==
--- OUTSIDE RECORDS SUMMARY | 2024-12-09 15:25 | XMS_ITS | Encounter Summary ---
Author Organization [employer] [facility] Address [address] [place] [address] [address] [place] [address] Care Team Providers Care Crown Ironer Name Role Phone Tri Cotto MD Primary Care Provide r Encounter Details Date Type Department Care Team (Latest Contact Info) Description 11/16/2020 Abstract [facility] CONVERSIONS Dental, Provider, DDS Social History [...] Description 12/09/2024 3:30 PM EDT Office Visit [facility] [address] [place] [address] Tri Cotto MD [address] [place] [address] Primary hypertension (Primary Dx); Type 2 diabetes mellitus without complication, without long-term current use of insulin ([facility]) documented as of this encounter Visit Diagnoses Not on filedocumented in this encounter Care Teams Crown Ironer Relationship Specialty Start Date End Date Tri Cotto MD [address] [place] [address] [phone] PCP - General Family Medicine 04/01/18 documented as of this encounter
[2024-12-09 16:31] LABS: Alanine Aminotransferase 26 U/L (0-31); Albumin Level 4.6 g/dL (3.5-5.0); Alkaline Phosphatase 85 U/L (39-117); Anion Gap 13 (12-20); Aspartate Amino Transferase 22 U/L (5-31); Bilirubin Total 0.5 mg/dL (0.0-1.0); Blood Urea Nitrogen 26 mg/dL (9-16); Carbon Dioxide 30 mmol/L (22-29); Chloride 102 mmol/L (96-108); Cholesterol 192 mg/dL (<200); Estimated Glomerular Filt Rate > 60; Glucose Random 121 mg/dL (60-115); HDL Cholesterol 53 mg/dL (>40); LDL Cholesterol Calculated 94 mg/dL (<100); Potassium 3.6 mmol/L (3.3-5.1); Sodium 141 mmol/L (135-145); Total Protein 7.2 g/dL (6.5-8.0); Triglycerides 226 mg/dL (<150)
[2024-12-09 16:59] LABS: Creatinine Urine 64.74 mg/dL; Microalbumin Urine < 5.0 mg/L
== END 2024-12-09 15:24 | disposition home or self-care (01) ==
LOC: HO.HHCL 15:23
PROVIDERS: Visit Provider Internal Medicine
DX: E11.9 Type 2 diabetes mellitus without complications (principal)
CPT/HCPCS: 36415; 80053; 80061; 82043; 82570